=== PATIENT | male | born 1945 | race Caucasian/White ===

== ENCOUNTER 2017-04-29 09:15 | Emergency (ER) | payer OTHER ==
[~2017-04-29] VITALS: Ht 168.9 cm; Wt 111.2 kg
[~2017-04-29 09:15] MED LIST: ADVIN25050 INH; ALBU1AER9 INH; ALL300 PO; ASCA500 PO; CHOL100010 PO; CNT PO; ENOX40IN SQ; FLUTICASONE NAE; LATA0.009 OPB; LISI-725 PO; METO25TA3 PO; OXYC-57 PO; OXYSR10 PO; OXYSR20 PO; PRLSR20 PO; SIMV20TA2 PO; TERA1CAP63 PO
[2017-04-29 09:21] VITALS: Ht 168.9 cm; Wt 111.2 kg
[2017-04-29 09:34] VITALS: O2SAT 95
[2017-04-29] MEDS ORDERED: ACETAMINOPHEN 500 MG TAB PO STA (09:55)
--- NOTE | 2017-04-29 09:56 | EMERGENCY ROOM VISIT NOTE ---
History Report prepared by Wang: Shine Escamilla Under the Supervision of: Dr. Yogesh Prater M.D. First contact with patient: 09:30 Chief Complaint: CHEST PAIN Stated Complaint: SEVERE CHEST PAINS History of Present Illness The patient is a 71 year old white male with a past medical history of DJD, COPD , HTN, and HLD who presents to the ED with a cc of waxing and waning achy chest pain beginning 0630 this morning which usually lasts for 5 seconds then comes back again. Positive shortness of breath. Negative fevers, chills, cough, leg pains, recent car or plane travel. Nothing makes the pain better or worse, and exertion does not make it worse. He has had intermittent chest pain at night for the past month, though it usually goes away within an hour. He takes 81mg of aspirin daily, and he does not smoke cigarettes for the past three years, though he did for 53 years. He has a family history of TN and CHF. Source of History: patient Onset: 0630 Position: chest Quality: ache Timing: waxes/wanes Associated Symptoms: + SOB, No fevers, No chills, No cough Review of Systems See HPI for pertinent positives and negatives. A total of ten systems were reviewed and were otherwise negative. Past Medical & Surgical Medical Problems: (1) COPD (chronic obstructive pulmonary disease) (2) DJD (degenerative joint disease) (3) HLD (hyperlipidemia) (4) HTN (hypertension) Family History FH: CHF (congestive heart failure) FH: heart attack Social History Smoking Status: Former Smoker Marital Status: Occupation Status: employed Current/Historical Medications Scheduled Allopurinol (Allopurinol), 300 MG PO DAILY Amlodipine (Norvasc), 5 MG PO DAILY Ascorbic Acid (Vitamin C), 500 MG PO DAILY Aspirin (Aspirin Ec), 81 MG PO DAILY Calcitriol (Rocaltrol Cap), 0.25 MCG PO 2XWK Fluticasone Prop/Salmeterol (Advair Diskus 250/50 60 Dose), 1 PUFF INH BID Furosemide (Lasix), 40 MG PO QPM Latanoprost (Xalatan 0.005% Oph Ida), 1 DROPS OPB HS Omeprazole (Prilosec), 20 MG PO DAILY Prednisone (Prednisone), 30 MG PO DAILY Sildenafil Citrate (Viagra), 100 MG PO PRN Simvastatin (Zocor), 20 MG PO HS Scheduled PRN Acetaminophen (Tylenol Extra Strength), 500 MG PO UD PRN for Pain Albuterol Sulfate (Proair Respiclick), 2 PUFFS INH QID PRN for SOB/Wheezing Epinephrine (Epipen), 0.3 MG IM UD PRN for ALLERGIC REACTION Mometasone Furoate (Mometasone Furoate), 1 APPLN TOP DAILY PRN for Itching Prednisone Tab (Prednisone), 1 DOSE PO UD PRN for RESCUE KIT Tapentadol Hcl (Nucynta), 50 MG PO TID PRN for Pain Allergies Coded Allergies: Bee Venom (Verified Allergy, Severe, THROAT SWELLING, 04/29/17) Ceftriaxone (Verified Allergy, Intermediate, HIVES, 04/29/17) Sulfa Antibiotics (Verified Allergy, Unknown, `, 04/29/17) Physical Exam Vital Signs Date Time Temp Pulse Resp B/P (MAP) Pulse Ox O2 Delivery O2 Flow Rate FiO2 04/29/17 16:20 75 16 114/93 97 04/29/17 13:38 76 04/29/17 12:12 81 15 150/98 97 Room Air 04/29/17 10:56 79 18 107/88 96 Room Air 04/29/17 09:34 95 Room Air 04/29/17 09:34 95 Room Air 04/29/17 09:31 86 04/29/17 09:21 36.8 91 16 186/103 95 Room Air Physical Exam GENERAL: Awake, alert, well-appearing, NAD HENT: Normocephalic, atraumatic. Right sided cochlear implant. EYES: Normal conjunctiva. Sclera non-icteric. NECK: Supple. No nuchal rigidity. FROM. RESPIRATORY: CTAB, no rhonchi, wheezing, crackles CARDIAC: RRR, no MRG ABDOMEN: Soft, NTND, BS+ MSK: No chest wall TTP, no LE edema. Left vertical incisional scar over the left knee consistent with prior TKA. NEURO: GCS 15, CN 2-12 intact, moves all 4s on command SKIN: No rash or jaundice noted. Medical Decision & Procedures ER Provider Diagnostic Interpretation: Radiology results as stated below per my review and radiologist interpretation: CHEST ONE VIEW PORTABLE CLINICAL HISTORY: Atypical chest pain COMPARISON STUDY: 09/11/2008 FINDINGS: The heart is mildly enlarged. There is aortic tortuosity. There is no failure. There is no focal pulmonary consolidation. There are no pleural effusions.[ IMPRESSION: No active disease in the chest. Electronically signed by: Mello Padilla M.D. 04/29/2017 10:23 AM Dictated Date/Time: 04/29/2017 10:23 AM Laboratory Results 04/29/17 09:30 Red Blood Count 4.62, Mean Corpuscular Volume 92.4, Mean Corpuscular Hemoglobin 30.7, Mean Corpuscular Hemoglobin Concent 33.3, Mean Platelet Volume 9.8, Neutrophils (%) (Auto) 58.6, Lymphocytes (%) (Auto) 29.2, Monocytes (%) (Auto) 6.9, Eosinophils (%) (Auto) 3.4, Basophils (%) (Auto) 0.5, Neutrophils # (Auto) 5.57, Lymphocytes # (Auto) 2.78, Monocytes # (Auto) 0.66, Eosinophils # (Auto) 0.32, Basophils # (Auto) 0.05 04/29/17 09:30 Test 04/29/17 09:30 White Blood Count 9.51 K/uL (4.8-10.8) Red Blood Count 4.62 M/uL (4.7-6.1) Hemoglobin 14.2 g/dL (14.0-18.0) Hematocrit 42.7 % (42-52) Mean Corpuscular Volume 92.4 fL (80-100) Mean Corpuscular Hemoglobin 30.7 pg (25-34) Mean Corpuscular Hemoglobin Concent 33.3 g/dl (32-36) Platelet Count 227 K/uL (130-400) Mean Platelet Volume 9.8 fL (7.4-10.4) Neutrophils (%) (Auto) 58.6 % Lymphocytes (%) (Auto) 29.2 % Monocytes (%) (Auto) 6.9 % Eosinophils (%) (Auto) 3.4 % Basophils (%) (Auto) 0.5 % Neutrophils # (Auto) 5.57 K/uL (1.4-6.5) Lymphocytes # (Auto) 2.78 K/uL (1.2-3.4) Monocytes # (Auto) 0.66 K/uL (0.11-0.59) Eosinophils # (Auto) 0.32 K/uL (0-0.5) Basophils # (Auto) 0.05 K/uL (0-0.2) RDW Standard Deviation 48.4 fL (36.4-46.3) RDW Coefficient of Variation 14.4 % (11.5-14.5) Immature Granulocyte % (Auto) 1.4 % Immature Granulocyte # (Auto) 0.13 K/uL (0.00-0.02) Prothrombin Time 10.3 SECONDS (9.0-12.0) Prothromb Time International Ratio 1.0 (0.9-1.1) Activated Partial Thromboplast Time 26.1 SECONDS (21.0-31.0) Partial Thromboplastin Ratio 1.0 Anion Gap 7.0 mmol/L (3-11) Est Creatinine Clear Calc Drug Dose 54.9 ml/min Estimated GFR () 54.3 Estimated GFR (Non- 46.8 BUN/Creatinine Ratio 24.5 (10-20) Calcium Level 9.5 mg/dl (8.5-10.1) Total Bilirubin 0.4 mg/dl (0.2-1) Direct Bilirubin 0.1 mg/dl (0-0.2) Aspartate Amino Transf (AST/SGOT) 14 U/L (15-37) Alanine Aminotransferase (ALT/SGPT) 22 U/L (12-78) Alkaline Phosphatase 98 U/L (45-117) Troponin I 0.029 ng/ml (0-0.045) Total Protein 7.5 gm/dl (6.4-8.2) Albumin 3.9 gm/dl (3.4-5.0) Lipase 243 U/L (73-393) Laboratory results reviewed by me Medications Administered Medications (Trade) Dose Ordered Sig/Phillip Route Start Time Stop Time Status Last Admin Dose Admin Acetaminophen (Tylenol Tab) 1,000 mg NOW STAT PO 04/29/17 09:55 04/29/17 09:57 DC 04/29/17 10:04 1,000 MG Fentanyl Citrate (Fentanyl Inj) 75 mcg NOW ONCE IV 04/29/17 12:15 04/29/17 12:17 DC 04/29/17 12:11 75 MCG Perflutren Lipid Microsphere (Definity) 2 ml ONE ONCE IV 04/29/17 15:44 04/29/17 15:45 DC 04/29/17 15:44 2 ML ECG Indication: chest pain Rate (beats per minute): 82 Rhythm: normal sinus Findings: no ectopy, other (Normal intervals, normal axis, no STS changes or TWI, T wave flattening in lead 3. No other contiguous changes) ED Course 0930: The patient was evaluated in room A4. A complete history and physical exam was performed. 1118: I discussed the patient's case with Dr. Grullon, Cardiology, and he is going to evaluate the patient and perform an exercise stress echo. 1121: I reevaluated the patient, and I discussed the treatment plan. 1454: The patient is still at his testing. 1546: I talked with Dr. Grullon, and he states that the patient had hypertension associated with the test and it was non-ischemic. He recommends starting the patient on amlodipine. 1550: I reevaluated the patient. Discussed results and discharge instructions: He verbalized understanding and agreement. The patient is ready for discharge. 1701: Dr. Grullon called me, and on further inspection, the patient had a trace pericardial effusion. Medical Decision Differential diagnosis: Etiologies such as cardiac ischemia, aortic dissection, pulmonary embolism, pneumonia, pneumothorax, musculoskeletal, infections, pericarditis, myocarditis , esophageal rupture, gastrointestinal, as well as others were entertained. Patient was seen and evaluated at the bedside. Patient had been complaining of some light left sided in her bitten chest pain been ongoing for 1 month's time. Patient denies any infectious symptoms and his symptoms are not concerning for possible PE. Patient's EKG was benign. Troponin was 0.02. Patient only had mild chest pain. Patient states that the pain was not exertionally is no PND orthopnea. Patient does have some risk factors and his heart score is greater than 4. I spoke with cardiology. Stress ECHO ordered. Result was negative. He did have a HTNsive episode. Was told to start amlodipine and given Rx. After d/c, I spoke w/ Dr. Grullon who noted trace pericardial effusion w/o tamp. Recommended motrin for possible pericarditis. I phoned the patient but was unable to reach and a message was left. He called and left a message. I called back. He stated he wasn't to take motrin given CKD. Given a short course of prednisone instead which was sent electronically. Patient agreed w/ POC. Medication Reconcilliation Current Medication List: was personally reviewed by me Blood Pressure Screening Patient's blood pressure: Elevated blood pressure Blood pressure disposition: Referred to PCP Consults Time Called: 1105 Consulting Physician: Dr. Grullon, Cardiology Returned Call: 1118 I discussed the patient's case with Dr. Grullon, Cardiology, and he is going to evaluate the patient and perform an exercise stress echo. Impression Primary Impression: Left sided chest pain Additional Impression: HTN (hypertension) Scribe Attestation The scribe's documentation has been prepared under my direction and personally reviewed by me in its entirety. I confirm that the note above accurately reflects all work, treatment, procedures, and medical decision making performed by me. Departure Information Dispostion Home / Self-Care Prescriptions Prednisone (Prednisone) 20 Mg Tab 30 MG PO DAILY for 14 Days, #21 TAB Prov: Yogesh Prater M.D. 04/29/17 Amlodipine (Norvasc) 5 Mg Tab 5 MG PO DAILY for 30 Days, #30 TAB Prov: Yogesh Prater M.D. 04/29/17 Referrals Kain Russell M.D. (PCP) Forms Call Back Authorization, HOME CARE DOCUMENTATION FORM, IMPORTANT VISIT INFORMATION Patient Instructions My [facility] Additional Instructions Please return to the emergency department if you have worsening or recurrent symptoms not amenable to at-home treatment. Please call for a follow-up appointment with her primary care physician. Please take your medications as prescribed. If you have other concerns and/or complaints please feel free to also call your primary care physician's office or return the ED for further evaluation, management, and treatment. You were found to have an elevated blood pressure today (>120 sytolic or >90 diastolic). Per medicare guidelines, you need to follow up with this blood pressure screening with your Primary Care Physician (PCP). For a new PCP call [phone]. Please call your PCP Dr. Russell to be seen w/in 1 week. You have been examined and treated today on an emergency basis only. This is not a substitute for, or an effort to provide, complete comprehensive medical care. It is impossible to recognize and treat all injuries or illnesses in a single emergency department visit. It is therefore important that you follow up closely with [facility]. Call as soon as possible for an appointment. Thank you for your time and consideration. I look forward to speaking with you again soon. Please don't hesitate to call us if you have any questions. Problem Qualifiers Additional Impression: HTN (hypertension) Hypertension type: essential hypertension Qualified Codes: I10 - Essential ( primary) hypertension
[2017-04-29 10:16] LABS: BASO % 0.5 %; BASO ABS # 0.05 K/uL (0-0.2); COMPLETE YES; EOS % 3.4 %; HEMATOCRIT 42.7 % (42-52); IG% 1.4 %; LYMPH % 29.2 %; LYMPH ABS # 2.78 K/uL (1.2-3.4); MEAN CELL VOLUME 92.4 fL (80-100); MEAN CORPUSCULAR HEMOGLOBIN 30.7 pg (25-34); MEAN CORPUSCULAR HGB CONC 33.3 g/dl (32-36); MEAN PLATELET VOLUME 9.8 fL (7.4-10.4); MONO % 6.9 %; NEUT % 58.6 %; PLATELET COUNT 227 K/uL (130-400); RED BLOOD COUNT 4.62 M/uL (4.7-6.1); WHITE BLOOD COUNT 9.51 K/uL (4.8-10.8)
[2017-04-29 10:23] LABS: PROTHROMBIN TIME (PATIENT) 10.3 SECONDS (9.0-12.0)
[2017-04-29 10:25] LABS: BUN/CREATININE RATIO 24.5 (10-20); CALCIUM 9.5 mg/dl (8.5-10.1); CREATININE 1.5 mg/dl (0.60-1.40); POTASSIUM 4.2 mmol/L (3.5-5.1)
--- NOTE | 2017-04-29 10:25 | DIAGNOSTIC IMAGING REPORT ---
CHEST ONE VIEW PORTABLE CLINICAL HISTORY: Atypical chest pain COMPARISON STUDY: 09/11/2008 FINDINGS: The heart is mildly enlarged. There is aortic tortuosity. There is no failure. There is no focal pulmonary consolidation. There are no pleural effusions.[ IMPRESSION: No active disease in the chest. Electronically signed by: Mello Padilla M.D. 04/29/2017 10:23 AM Dictated Date/Time: 04/29/2017 10:23 AM
[2017-04-29] MEDS ORDERED: ASPI81TA28 PO (10:38)
[2017-04-29] MEDS ORDERED: LATA0.5S OPB (10:38)
[2017-04-29] MEDS ORDERED: ALBU18002 INH (10:38)
[2017-04-29] MEDS ORDERED: SIMV20TA2 PO (10:38)
[2017-04-29] MEDS ORDERED: FRS/40 PO (10:38)
[2017-04-29] MEDS ORDERED: ACET-1138 PO (10:38)
[2017-04-29] MEDS ORDERED: PRLSR20 PO (10:38)
[2017-04-29] MEDS ORDERED: ADVIN25/60 INH (10:38)
[2017-04-29] MEDS ORDERED: ALL300 PO (10:38)
[2017-04-29] MEDS ORDERED: EPP3/2 IM (10:38)
[2017-04-29] MEDS ORDERED: SILD100T PO (10:38)
[2017-04-29] MEDS ORDERED: CALC0.2510 PO (10:38)
[2017-04-29] MEDS ORDERED: ASCA500 PO (10:38)
[2017-04-29] MEDS ORDERED: TAPE50TA5 PO (10:38)
[2017-04-29] MEDS ORDERED: MOME1OIN2 TOP (10:38)
[2017-04-29] MEDS ORDERED: PRED10TA PO (10:38)
[2017-04-29] MEDS ORDERED: FENTANYL CITRATE INJ 50 MCG/1 ML 2 ML VIAL IV ONE (12:15)
[2017-04-29] MEDS ORDERED: PERFLUTREN LIPID MICROSPHERE (DEFINITY) IV ONE (15:44)
[2017-04-29] MEDS ORDERED: AMLO-110 PO (15:51)
[2017-04-29 16:20] VITALS: BP 114/93; PULSE 75; O2SAT 97
--- NOTE | 2017-04-29 17:06 | EXERCISE STRESS ECHO ---
*NOTICE TO RECEIVING REPUBLICAN AGENCY This information is strictly Confidential and protected under [place] law. [place] law prohibits you from making any further disclosure of this information unless further disclosure is expressly permitted by the written consent of the person to whom it pertains or is authorized by law. A general authorization for the release of medical or other information is not sufficient for this purpose. Hospital accepts no responsibility if the information is made available to any other person, INCLUDING THE PATIENT. Interpretation Summary * Name: MELISSA HARDEN Study Date: 04/29/2017 12:12 PM BP: 163/95 mmHg * Patient Location: [facility] HR: 71 * : 1945 (M/d/yyyy) Gender: Male Height: 66 in * Age: 71 yrs Ethnicity: [place] Weight: 245 lb * Ordering Physician: Yogesh Prater * Referring Physician: Self, Referred * Performed By: Dominguez Artis RCS * * Reason For Study: chest pain * BSA: 2.2 m2 * -- Conclusions -- * Nonischemic exercise stress echocardiogram. * No arrhythmias. * Hypertensive BP response to exercise. * Below average exercise tolerance. * At rest, normal LV chamber size with mild concentric LVH. * Normal LV systolic function, EF 60-65%. * No segmental left ventricular wall motion abnormalities are noted. * Grade I diastolic dysfunction. Procedure Details * ECHOEX, CPT #[id number] * ECHO COLOR FLOW, CPT #[id number] * ECHO DOPPLER, CPT #[id number] * A contrast injection of Definity was performed to improve assessment of LV function. * Contrast was injected into an intravenous site in the right arm. * One vial of Definity ultrasound contrast was diluted in normal saline to a total volume of 10 ml. A total of '4' ml of solution was administered during imaging. * Lot # [id number] of Definity utilized for procedure. * Expiration date . * The attending nurse who injected the contrast agent was Chris Maloney RN. Left Ventricle * The left ventricle is normal in size. * There is mild concentric left ventricular hypertrophy. * Left ventricular systolic function is normal. * No segmental left ventricular wall motion abnormalities are noted. * Ejection Fraction = 60-65%. * Resting wall motion: Normal. Stress wall motion: Appropriate increase in Left ventricular systolic function and decrease in cavity size. No stress induced segmental wall motion abnormalities. Right Ventricle * The right ventricular cavity size is normal (basal dimension <4.2 cm in right ventricular apical 4-chamber view). * The right ventricular systolic function is normal as assessed by tricuspid annular plane systolic excursion (TAPSE) (normal >1.5 cm). Atria * The left atrial size is normal. * Right atrial size is normal. * No ASD detected; PFO is not assessed. Mitral Valve * The mitral valve is normal in structure and function. Tricuspid Valve * The tricuspid valve is normal in structure and function. Aortic Valve * The aortic valve is not well visualized. * No hemodynamically significant valvular aortic stenosis. * There is no significant aortic regurgitation. Pulmonic Valve * The pulmonary valve is not well seen, but the Doppler examination is normal without significant regurgitation or stenosis. Great Vessels * The aortic root and proximal ascending aorta are normal sized. Pericardium * Small pericardial effusion. * A loculated pericardial effusion is noted. Stress Parameters * Normal baseline electrocardiogram. * Stress ECG: No ST changes. No arrhythmias. * No arrhythmia were noted with stress. * The stress portion of this study was personally supervised by the undersigned interpreting physician. * Rest heart rate was '71' BPM. * Rest blood pressure was '163/95' * Maximum heart rate achieved was 134 bpm. * Maximum heart rate was 88 % of maximum age-predicted heart rate. * Maximum blood pressure was '243/108' * Total exercise time was '5:51' * Maximum exercise MET level achieved was '7.0' METS * Maximum treadmill speed was '2.5' miles per hour. * Maximum treadmill elevation was '12'% grade. * Exercise was terminated due to 'physicians descretion due to increased blood pressure' Left Ventricular Diastolic Function * Grade I diastolic dysfunction, (abnormal relaxation pattern). MMode 2D Measurements and Calculations IVSd 1.3 cm IVSs 1.5 cm LVIDd 4.8 cm LVIDs 3.5 cm LVPWd 1.2 cm LVPWs 1.8 cm IVS/LVPW 1.1 FS 26.9 % EDV(Teich) 108.2 ml ESV(Teich) 51.5 ml EF(Teich) 52.4 % EDV(cubed) 111.5 ml ESV(cubed) 43.5 ml EF(cubed) 61.0 % % IVS thick 15.7 % % LVPW thick 49.2 % LV mass(C)d 237.5 grams LV mass(C)dI 108.9 grams/m\S\2 LV mass(C)s 232.5 grams LV mass(C)sI 106.6 grams/m\S\2 SV(Teich) 56.7 ml SI(Teich) 26.0 ml/m\S\2 SV(cubed) 68.0 ml SI(cubed) 31.2 ml/m\S\2 asc Aorta Diam 3.5 cm EDV(MOD-sp4) 122.6 ml ESV(MOD-sp4) 43.4 ml EF(MOD-sp4) 64.6 % EDV(MOD-sp2) 109.1 ml ESV(MOD-sp2) 47.9 ml EF(MOD-sp2) 56.1 % SV(MOD-sp4) 79.2 ml SI(MOD-sp4) 36.3 ml/m\S\2 SV(MOD-sp2) 61.3 ml SI(MOD-sp2) 28.1 ml/m\S\2 Doppler Measurements and Calculations MV E max ivan 59.2 cm/sec MV A max ivan 74.7 cm/sec MV E/A 0.79 MV P1/2t max ivan 61.2 cm/sec MV P1/2t 73.9 msec MVA(P1/2t) 3.0 cm\S\2 MV dec slope 242.7 cm/sec\S\2 MV dec time 0.30 sec Ao V2 max 114.0 cm/sec Ao max PG 5.2 mmHg Ao max PG (full) 2.5 mmHg LV V1 max PG 2.7 mmHg LV V1 max 82.3 cm/sec PA V2 max 115.6 cm/sec PA max PG 5.3 mmHg TR max ivan 96.3 cm/sec
--- NOTE | 2017-04-29 17:08 | EXERCISE STRESS ECHO ---
*NOTICE TO RECEIVING REPUBLICAN AGENCY This information is strictly Confidential and protected under [place] law. [place] law prohibits you from making any further disclosure of this information unless further disclosure is expressly permitted by the written consent of the person to whom it pertains or is authorized by law. A general authorization for the release of medical or other information is not sufficient for this purpose. Hospital accepts no responsibility if the information is made available to any other person, INCLUDING THE PATIENT. Interpretation Summary * Name: MELISSA HARDEN Study Date: 04/29/2017 12:12 PM BP: 163/95 mmHg * Patient Location: [facility] HR: 71 * : 1945 (M/d/yyyy) Gender: Male Height: 66 in * Age: 71 yrs Ethnicity: [place] Weight: 245 lb * Ordering Physician: Yogesh Prater * Referring Physician: Self, Referred * Performed By: Dominguez Artis RCS * * Reason For Study: chest pain * BSA: 2.2 m2 * -- Conclusions -- * Nonischemic exercise stress echocardiogram. * No arrhythmias. * Hypertensive BP response to exercise. * Below average exercise tolerance. * At rest, normal LV chamber size with mild concentric LVH. * Normal LV systolic function, EF 60-65%. * No segmental left ventricular wall motion abnormalities are noted. * Grade I diastolic dysfunction. * No significant valvular pathology. * Small, loculated pericardial effusion. Not hemodynamically significant. Procedure Details * ECHOEX, CPT #[id number] * ECHO COLOR FLOW, CPT #[id number] * ECHO DOPPLER, CPT #[id number] * A contrast injection of Definity was performed to improve assessment of LV function. * Contrast was injected into an intravenous site in the right arm. * One vial of Definity ultrasound contrast was diluted in normal saline to a total volume of 10 ml. A total of '4' ml of solution was administered during imaging. * Lot # [id number] of Definity utilized for procedure. * Expiration date . * The attending nurse who injected the contrast agent was Chris Maloney RN. Left Ventricle * The left ventricle is normal in size. * There is mild concentric left ventricular hypertrophy. * Left ventricular systolic function is normal. * No segmental left ventricular wall motion abnormalities are noted. * Ejection Fraction = 60-65%. * Resting wall motion: Normal. Stress wall motion: Appropriate increase in Left ventricular systolic function and decrease in cavity size. No stress induced segmental wall motion abnormalities. Right Ventricle * The right ventricular cavity size is normal (basal dimension <4.2 cm in right ventricular apical 4-chamber view). * The right ventricular systolic function is normal as assessed by tricuspid annular plane systolic excursion (TAPSE) (normal >1.5 cm). Atria * The left atrial size is normal. * Right atrial size is normal. * No ASD detected; PFO is not assessed. Mitral Valve * The mitral valve is normal in structure and function. Tricuspid Valve * The tricuspid valve is normal in structure and function. Aortic Valve * The aortic valve is not well visualized. * No hemodynamically significant valvular aortic stenosis. * There is no significant aortic regurgitation. Pulmonic Valve * The pulmonary valve is not well seen, but the Doppler examination is normal without significant regurgitation or stenosis. Great Vessels * The aortic root and proximal ascending aorta are normal sized. Pericardium * Small pericardial effusion. * A loculated pericardial effusion is noted. Stress Parameters * Normal baseline electrocardiogram. * Stress ECG: No ST changes. No arrhythmias. * No arrhythmia were noted with stress. * The stress portion of this study was personally supervised by the undersigned interpreting physician. * Rest heart rate was '71' BPM. * Rest blood pressure was '163/95' * Maximum heart rate achieved was 134 bpm. * Maximum heart rate was 88 % of maximum age-predicted heart rate. * Maximum blood pressure was '243/108' * Total exercise time was '5:51' * Maximum exercise MET level achieved was '7.0' METS * Maximum treadmill speed was '2.5' miles per hour. * Maximum treadmill elevation was '12'% grade. * Exercise was terminated due to 'physicians descretion due to increased blood pressure' Left Ventricular Diastolic Function * Grade I diastolic dysfunction, (abnormal relaxation pattern). MMode 2D Measurements and Calculations IVSd 1.3 cm IVSs 1.5 cm LVIDd 4.8 cm LVIDs 3.5 cm LVPWd 1.2 cm LVPWs 1.8 cm IVS/LVPW 1.1 FS 26.9 % EDV(Teich) 108.2 ml ESV(Teich) 51.5 ml EF(Teich) 52.4 % EDV(cubed) 111.5 ml ESV(cubed) 43.5 ml EF(cubed) 61.0 % % IVS thick 15.7 % % LVPW thick 49.2 % LV mass(C)d 237.5 grams LV mass(C)dI 108.9 grams/m\S\2 LV mass(C)s 232.5 grams LV mass(C)sI 106.6 grams/m\S\2 SV(Teich) 56.7 ml SI(Teich) 26.0 ml/m\S\2 SV(cubed) 68.0 ml SI(cubed) 31.2 ml/m\S\2 asc Aorta Diam 3.5 cm EDV(MOD-sp4) 122.6 ml ESV(MOD-sp4) 43.4 ml EF(MOD-sp4) 64.6 % EDV(MOD-sp2) 109.1 ml ESV(MOD-sp2) 47.9 ml EF(MOD-sp2) 56.1 % SV(MOD-sp4) 79.2 ml SI(MOD-sp4) 36.3 ml/m\S\2 SV(MOD-sp2) 61.3 ml SI(MOD-sp2) 28.1 ml/m\S\2 Doppler Measurements and Calculations MV E max ivan 59.2 cm/sec MV A max ivan 74.7 cm/sec MV E/A 0.79 MV P1/2t max ivan 61.2 cm/sec MV P1/2t 73.9 msec MVA(P1/2t) 3.0 cm\S\2 MV dec slope 242.7 cm/sec\S\2 MV dec time 0.30 sec Ao V2 max 114.0 cm/sec Ao max PG 5.2 mmHg Ao max PG (full) 2.5 mmHg LV V1 max PG 2.7 mmHg LV V1 max 82.3 cm/sec PA V2 max 115.6 cm/sec PA max PG 5.3 mmHg TR max ivan 96.3 cm/sec
[2017-04-29] MEDS ORDERED: PRED20TA PO (18:09)
== END 2017-04-29 16:20 | disposition home or self-care (01) ==
LOC: C.EDB 09:17 → C.EDA 16:20
DX: R07.9 Chest pain, unspecified (principal); I10 Essential (primary) hypertension; M19.90 Unspecified osteoarthritis, unspecified site; J44.9 Chronic obstructive pulmonary disease, unspecified; E78.5 Hyperlipidemia, unspecified; Z79.82 Long term (current) use of aspirin; Z82.49 Family history of ischemic heart disease and other diseases of the circulatory system; Z87.891 Personal history of nicotine dependence; Z79.899 Other long term (current) drug therapy; Z96.652 Presence of left artificial knee joint

== ENCOUNTER 2025-01-20 10:44 | Observation (INO) ==
--- NOTE | 2025-01-20 11:08 | Emergency Department Note ---
Impression & Plan Sepsis, Community acquired pneumonia, Hypomagnesemia, Acute hyponatremia ED Provider Note NAME: MELISSA HARDEN AGE: 79 SEX: M : 1945 ARRIVES VIA: EMS INFORMANT: Patient, EMS staff ED PROVIDER(S): Carlos Alvarez DO CHIEF COMPLAINT: lightheadedness HPI: This is a 79-year-old male with the PMHx of hypertension, dyslipidemia, CKD and COPD presenting to [facility] for further evaluation of lightheadedness. Patient states he was at baseball games over the weekend for his grandchildren. Patient states he was out in the heat and not keeping up with his hydration. Patient states that he was also working out in his yard helping someone remove shrubbery. Patient reports that he woke up this morning and had significant lightheadedness. He also reports frequent urination and he has tried to increase his hydration without significant improvement in his symptoms. Patient states that his lightheadedness seems to be positional. He denies any vertiginous symptoms. Patient does feel weakness and fatigue. He reports polyuria. He has no history of diabetes. Patient denies significant headache or vision changes. No numbness or tingling in extremities. No weakness in the extremities. Patient has significant chills this morning that have since resolved. No cough or congestion. Denies chest pain or palpitations. No shortness of breath. They deny abdominal pain, nausea and vomiting. No urinary complaints. No recent changes in bowel movements. Patient denies recent changes in medications or OTC supplements. Patient offers no other complaints, today. ADDITIONAL HISTORY OBTAINED: Per HPI Chronic Medical/Social Conditions Affecting Care: Per HPI PAST MEDICAL HISTORY: See Below PAST SURGICAL HISTORY: See Below FAMILY HISTORY: See Below SOCIAL HISTORY: See Below HOME MEDICATIONS: See Below ALLERGIES: See Below VITALS: See Below PHYSICAL EXAMINATION: GENERAL: Sitting up in bed, alert, well appearing, well nourished, no distress, non-toxic EYE EXAM: normal conjunctiva. PERRL and EOM's grossly intact. OROPHARYNX: no exudate, no erythema, lips, buccal mucosa, and tongue normal and mucous membranes are dry NECK: supple, no nuchal rigidity, no adenopathy, non-tender, normal range of motion LUNGS: Rhonchorous breath sounds on the right. Mild tachypnea present. Normal chest wall mechanics HEART: no murmurs, tachycardic rate, regular rhythm ABDOMEN: abdomen soft, non-tender, normo-active bowel sounds, no masses, no rebound or guarding. BACK: Back is symmetrical on inspection and there is no deformity, no midline tenderness, no CVA tenderness. SKIN: no rashes and no bruising UPPER EXTREMITIES: upper extremities are grossly normal. LOWER EXTREMITIES: No pitting edema. NEURO EXAM: Normal sensorium, cranial nerves II-XII grossly intact, normal speech, no gross weakness of arms, no gross weakness of legs. No drift. Finger to nose intact. Gross sensation intact. patient ambulates and stands without difficulty. MEDICAL DECISION MAKING: Differential diagnosis includes but not limited to orthostatic hypotension, dehydration, electrolyte derangements, sepsis, UTI, stroke, peripheral vertigo, medication side effect, polypharmacy In summary, this is a 79-year-old male with a past medical history significant for hypertension, hyperlipidemia and CKD presenting for lightheadedness and concerns for dehydration. Triage and nursing notes reviewed. Patient is tachycardic but otherwise afebrile and hemodynamically stable. Diagnostics interpreted by me include EKG and cardiac monitoring as listed below: -Cardiac Monitoring: An order was placed for continuous cardiac monitoring. The monitor shows a rate of low 100s with regular rhythm. -ECG: EKG independently inter by me reveals sinus tachycardia at a rate of [address] segment change doubt STEMI. Intervals otherwise within normal limits. History provided by the patient includes lightheadedness that started this morning with thoughts that he was dehydrated. He does endorse chills this morning and I am concerned that he was having rigors. Physical examination reveals tachycardia and tachypnea but otherwise unremarkable exam. He is a GCS of 15 and grossly neurovascularly intact without evidence of a focal deficit. Given history and presentation, we will Labs and chest x-ray for further imaging. I do suspect he is likely dehydrated but given his vital signs and complaints, I am concerned for occult infections. Plan for further evaluation of infectious etiologies with urinalysis, chest x-ray and inflammatory markers as well as basic labs. We will begin IV fluid resuscitation given his tachycardia. No concerns for stroke based on physical examination and history. Will defer intracranial imaging for now. Labs and imaging reviewed. Pertinent findings include Leukocytosis on CBC. Patient does have mild anemia that is stable as compared to prior. Patient's lactate was within normal limits. Given leukocytosis, will add RVP and proceed with sepsis alert. Patient chest x-ray was independently interpreted by me and reveals focal consolidations of the right side of the chest. No evidence of a pneumothorax. Do believe this likely explains his tachypnea and tachycardia as well as rigors prior. Do believe he is likely septic secondary to community- acquired pneumonia. Reviewed allergies. Patient does have an allergy to ceftriaxone. He states that he has tolerated penicillins in the past without any issue. Will dose the patient with IV Zosyn as well as azithromycin for atypical coverage. Patient was also found to have significant hypomagnesemia as well as mild hyponatremia. Patient has IV fluid resuscitation ongoing. Will provide IV replenishment of magnesium. Given the patient lives alone and ongoing tachycardia and concerns for sepsis, I do believe he would be reasonable to admit for observation overnight. The patient was discussed with the hospitalist team and he was admitted for observation in the setting of sepsis secondary to community-acquired pneumonia with electrolyte derangements. Consults/Care Managements Discussions: Per MDM ER treatment provided: See above Procedures:none Critical Care: None Past Med/Surg History Problem List Generalized weakness KINJAL on CPAP Acute metabolic encephalopathy Hypomagnesemia (Acute) Community acquired pneumonia (Acute) Sepsis (Acute) Opiate overdose Postoperative fever CKD (chronic kidney disease) stage 3, GFR 30-59 ml/min Postoperative fever Discharge planning issues Leukocytosis Fever (Acute) Metabolic acidosis CANDIS (acute kidney injury) Encounter for pre-operative examination COPD (chronic obstructive pulmonary disease) Obesity (BMI 30-39.9) (Chronic) DJD (degenerative joint disease) (Chronic) HTN (hypertension) HLD (hyperlipidemia) Unilateral primary osteoarthritis, right knee Risks and benefits of procedure discussed in detail today, patient would like to proceed with Right TKA @ [facility] as scheduled. will obtain medical clearance with Dr Russell prior to surgery as well as obtain PATs at [facility]. Will place on ASA 81mg po bid x 1 month post op, f/u 2 weeks post op for routine post- operative care and xray, sooner if having any problems. will discuss with CM poss rehab placement vs nursing home facility. patient has failed conservative measures including prior NSAID use which is now held due to chronic kidney disease, prior visco injections and cortisone injections. Medical History History of COVID-19 08/2022 home test. fever, body aches, and chills. doing well at this time. History of basal cell carcinoma History of melanoma Hearing deficit COCHLEAR IMPLANT ON RIGHT; HEARING AID ON LEFT Kidney disease STAGE III; BASELINE CREATININE 1.5 PER CHART REVIEW GERD (gastroesophageal reflux disease) CONTROLLED Osteoarthritis Glaucoma Sleep apnea CPAP (NON-COMPLIANT) COPD (chronic obstructive pulmonary disease) STABLE Surgical History History of cataract surgery right History of oral surgery History of basal cell carcinoma (BCC) excision History of melanoma excision Hx of colonoscopy History of carpal tunnel surgery of left wrist History of cochlear implant RIGHT History of arthroplasty of left knee Hx of cardiac cath 2012= NO STENTS Family History Other Cancer Social History Smoking Status: Current every day smoker Tobacco Type: E-cigarettes / Vaping Cigarettes Per Day: QUIT CIGARETTES 4 YRS AGO, CURRENTLY USES E-CIGARETTES DAILY; Second Hand Exposure: No; Do You Dip or Chew Tobacco: No; Hx Alcohol Use: Yes (HX OF HEAVY ETOH USE) Alcohol type: hard liquor Hx Substance Use: No Preferred Language: Lao Communication Ability: Effective Communication Ability Comment: [facility] Glassware Finisher Required: No Beliefs That Will Affect Care: None Current Living Situation: Alone Feels Safe at Home: Yes Assistive Devices: Hearing Aid - Left and Hearing Aid - Right Allergies Allergies Allergy/AdvReac Type Severity Reaction Status Date / Time bee venom protein (honey bee) Allergy Severe THROAT Verified 12/25/22 07:37 SWELLING ceftriaxone Allergy Intermediate HIVES Verified 12/25/22 07:37 Sulfa (Sulfonamide Allergy Unknown Unknown Verified 12/25/22 07:37 Antibiotics) Home Meds Home Medications Medication Instructions Recorded Confirmed ascorbic acid (vitamin C) 500 mg 500 mg PO QAM 04/29/18 01/20/25 tablet (Vitamin C) epinephrine 0.3 mg/0.3 mL 0.3 mg IM Q3H PRN Allergy Symptoms 04/29/18 01/20/25 injection, auto-injector (EpiPen) fluticasone 250 mcg-salmeterol 50 1 inh inhalation BID 04/29/18 01/20/25 mcg/dose blistr powdr for inhalation (Wixela Inhub) furosemide 20 mg tablet 20 mg PO QPM PRN Fluid Retention 04/29/18 01/20/25 latanoprost 0.005 % eye drops 1 drp ophthalmic (eye) UD 04/29/18 01/20/25 (Xalatan) mometasone 0.1 % topical cream 1 applic topical UD PRN Skin 04/29/18 01/20/25 Cleansing omeprazole 20 mg tablet,delayed 20 mg PO QAM 04/29/18 01/20/25 release sildenafil 100 mg tablet (Viagra) 100 mg PO UD PRN Erectile 04/29/18 01/20/25 Dysfunction acetaminophen 325 mg tablet 650 mg PO QID PRN Pain 07/07/20 01/20/25 (Tylenol) aspirin 81 mg tablet,delayed 81 mg PO QPM 07/07/20 01/20/25 release atorvastatin 20 mg tablet 20 mg PO QPM 07/07/20 01/20/25 lisinopril 5 mg tablet 10 mg PO UD 07/07/20 01/20/25 tapentadol 50 mg tablet (Nucynta) 50 mg PO BID 07/07/20 01/20/25 amlodipine 10 mg tablet (Norvasc) 10 mg PO UD 11/15/22 01/20/25 gabapentin 300 mg capsule 300 mg PO TID 11/15/22 01/20/25 allopurinol 300 mg tablet 300 mg PO DAILY 01/20/25 01/20/25 Results & Data (ED) Vital Signs Vital Signs - 24 hr 01/20/25 10:50 01/20/25 10:50 01/20/25 11:06 Temperature 37.4 C Temperature Source Oral Pulse Rate 114 H Pulse Rate [Apical] 110 H Pulse Rate from SpO2 Sensor Respiratory Rate 22 22 Respiratory Effort / Characteristics Non-Labored Spontaneous Non-Labored Spontaneous Respiratory Depth Normal Normal Respiratory Pattern Regular Regular Blood Pressure 104/81 Blood Pressure [Right Arm] 99/58 L Blood Pressure Mean 88 Blood Pressure Mean [Right Arm] 71 Blood Pressure Position Semi-fowlers Blood Pressure Position [Right Arm] Semi-fowlers Pulse Oximetry 95 95 95 Oxygen Delivery Method Room Air Room Air Room Air Sepsis Recent Fever Within 48 Hours No Sepsis New/Unexplained Change in Mental Status No Sepsis Action Taken by Nursing Physician Notified 01/20/25 11:06 01/20/25 11:14 01/20/25 11:15 Temperature Temperature Source Pulse Rate 112 H 107 H 106 H Pulse Rate [Apical] Pulse Rate from SpO2 Sensor 108 H 107 H Respiratory Rate 22 33 H Respiratory Effort / Characteristics Respiratory Depth Respiratory Pattern Blood Pressure 125/75 Blood Pressure [Right Arm] Blood Pressure Mean 101 Blood Pressure Mean [Right Arm] Blood Pressure Position Blood Pressure Position [Right Arm] Pulse Oximetry 95 91 Oxygen Delivery Method Room Air Sepsis Recent Fever Within 48 Hours Sepsis New/Unexplained Change in Mental Status Sepsis Action Taken by Nursing 01/20/25 11:41 01/20/25 11:45 01/20/25 11:48 Temperature Temperature Source Pulse Rate 110 H 103 H 99 H Pulse Rate [Apical] Pulse Rate from SpO2 Sensor Respiratory Rate 20 23 Respiratory Effort / Characteristics Respiratory Depth Respiratory Pattern Blood Pressure Blood Pressure [Right Arm] Blood Pressure Mean Blood Pressure Mean [Right Arm] Blood Pressure Position Blood Pressure Position [Right Arm] Pulse Oximetry Oxygen Delivery Method Sepsis Recent Fever Within 48 Hours Sepsis New/Unexplained Change in Mental Status Sepsis Action Taken by Nursing 01/20/25 12:01 01/20/25 12:12 01/20/25 12:15 Temperature Temperature Source Pulse Rate Pulse Rate [Apical] 99 H 98 H Pulse Rate from SpO2 Sensor Respiratory Rate 18 22 Respiratory Effort / Characteristics Non-Labored Spontaneous Non-Labored Spontaneous Respiratory Depth Normal Normal Respiratory Pattern Regular Regular Blood Pressure 90/51 L Blood Pressure [Right Arm] 109/68 109/68 Blood Pressure Mean 71 Blood Pressure Mean [Right Arm] 81 81 Blood Pressure Position Blood Pressure Position [Right Arm] Semi-fowlers Semi-fowlers Pulse Oximetry 95 94 Oxygen Delivery Method Room Air Room Air Sepsis Recent Fever Within 48 Hours Sepsis New/Unexplained Change in Mental Status Sepsis Action Taken by Nursing 01/20/25 12:15 01/20/25 12:18 01/20/25 12:30 Temperature Temperature Source Pulse Rate 94 H Pulse Rate [Apical] 108 H Pulse Rate from SpO2 Sensor Respiratory Rate 23 20 Respiratory Effort / Characteristics Respiratory Depth Respiratory Pattern Blood Pressure 109/68 Blood Pressure [Right Arm] 124/73 Blood Pressure Mean 84 Blood Pressure Mean [Right Arm] 90 Blood Pressure Position Blood Pressure Position [Right Arm] Semi-fowlers Pulse Oximetry 96 Oxygen Delivery Method Room Air Sepsis Recent Fever Within 48 Hours Sepsis New/Unexplained Change in Mental Status Sepsis Action Taken by Nursing 01/20/25 12:30 01/20/25 12:30 01/20/25 12:30 Temperature Temperature Source Pulse Rate 95 H Pulse Rate [Apical] Pulse Rate from SpO2 Sensor 98 H Respiratory Rate 18 Respiratory Effort / Characteristics Respiratory Depth Respiratory Pattern Blood Pressure 124/73 124/73 Blood Pressure [Right Arm] Blood Pressure Mean 97 97 Blood Pressure Mean [Right Arm] Blood Pressure Position Blood Pressure Position [Right Arm] Pulse Oximetry 97 Oxygen Delivery Method Sepsis Recent Fever Within 48 Hours Sepsis New/Unexplained Change in Mental Status Sepsis Action Taken by Nursing 01/20/25 12:30 01/20/25 12:30 01/20/25 12:39 Temperature Temperature Source Pulse Rate 93 H Pulse Rate [Apical] Pulse Rate from SpO2 Sensor 93 H Respiratory Rate 26 H Respiratory Effort / Characteristics Respiratory Depth Respiratory Pattern Blood Pressure 124/73 124/73 Blood Pressure [Right Arm] Blood Pressure Mean 97 97 Blood Pressure Mean [Right Arm] Blood Pressure Position Blood Pressure Position [Right Arm] Pulse Oximetry 98 Oxygen Delivery Method Sepsis Recent Fever Within 48 Hours Sepsis New/Unexplained Change in Mental Status Sepsis Action Taken by Nursing 01/20/25 12:45 01/20/25 12:45 01/20/25 12:48 Temperature Temperature Source Pulse Rate 95 H Pulse Rate [Apical] 98 H Pulse Rate from SpO2 Sensor 96 H Respiratory Rate 21 21 Respiratory Effort / Characteristics Non-Labored Spontaneous Respiratory Depth Normal Respiratory Pattern Regular Blood Pressure 136/74 Blood Pressure [Right Arm] 136/74 Blood Pressure Mean 106 Blood Pressure Mean [Right Arm] 94 Blood Pressure Position Blood Pressure Position [Right Arm] Semi-fowlers Pulse Oximetry 96 96 Oxygen Delivery Method Room Air Sepsis Recent Fever Within 48 Hours Sepsis New/Unexplained Change in Mental Status Sepsis Action Taken by Nursing 01/20/25 13:00 01/20/25 13:00 01/20/25 13:06 Temperature Temperature Source Pulse Rate 96 H Pulse Rate [Apical] 98 H 99 H Pulse Rate from SpO2 Sensor 98 H Respiratory Rate 18 21 Respiratory Effort / Characteristics Respiratory Depth Respiratory Pattern Blood Pressure Blood Pressure [Right Arm] 129/79 Blood Pressure Mean Blood Pressure Mean [Right Arm] 95 Blood Pressure Position Blood Pressure Position [Right Arm] Semi-fowlers Pulse Oximetry 96 94 Oxygen Delivery Method Room Air Sepsis Recent Fever Within 48 Hours Sepsis New/Unexplained Change in Mental Status Sepsis Action Taken by Nursing 01/20/25 13:09 01/20/25 13:15 01/20/25 13:16 Temperature Temperature Source Pulse Rate 97 H Pulse Rate [Apical] 96 H Pulse Rate from SpO2 Sensor 98 H Respiratory Rate 17 21 Respiratory Effort / Characteristics Respiratory Depth Respiratory Pattern Blood Pressure 127/79 Blood Pressure [Right Arm] 127/79 Blood Pressure Mean 100 Blood Pressure Mean [Right Arm] 95 Blood Pressure Position Blood Pressure Position [Right Arm] Semi-fowlers Pulse Oximetry 97 95 Oxygen Delivery Method Room Air Sepsis Recent Fever Within 48 Hours Sepsis New/Unexplained Change in Mental Status Sepsis Action Taken by Nursing 01/20/25 13:16 01/20/25 13:16 01/20/25 13:18 Temperature Temperature Source Pulse Rate 99 H Pulse Rate [Apical] Pulse Rate from SpO2 Sensor 100 H Respiratory Rate 20 Respiratory Effort / Characteristics Respiratory Depth Respiratory Pattern Blood Pressure 127/79 127/79 Blood Pressure [Right Arm] Blood Pressure Mean 100 100 Blood Pressure Mean [Right Arm] Blood Pressure Position Blood Pressure Position [Right Arm] Pulse Oximetry 95 Oxygen Delivery Method Sepsis Recent Fever Within 48 Hours Sepsis New/Unexplained Change in Mental Status Sepsis Action Taken by Nursing 01/20/25 13:30 01/20/25 13:45 Temperature Temperature Source Pulse Rate Pulse Rate [Apical] 99 H 102 H Pulse Rate from SpO2 Sensor Respiratory Rate 19 18 Respiratory Effort / Characteristics Non-Labored Respiratory Depth Normal Respiratory Pattern Blood Pressure Blood Pressure [Right Arm] 105/79 Blood Pressure Mean Blood Pressure Mean [Right Arm] 87 Blood Pressure Position Blood Pressure Position [Right Arm] Sitting Pulse Oximetry 94 Oxygen Delivery Method Room Air Sepsis Recent Fever Within 48 Hours Sepsis New/Unexplained Change in Mental Status Sepsis Action Taken by Nursing Laboratory Data 01/20/25 11:05 01/20/25 11:05 Lab Results 01/20/25 01/20/25 01/20/25 Range/Units 11:05 11:19 11:53 WBC 17.13 H (4.8-10.8) K/ul RBC 3.79 L (4.70-6.10) M/uL Hgb 11.6 L (14.0-18.0) g/dl Hct 34.5 L (42.0-52.0) % MCV 91.0 (80.0-100.0) fL MCH 30.6 (25.0-34.0) pg MCHC 33.6 (32.0-36.0) g/dL RDW Std Deviation 49.8 H (36.4-46.3) fL RDW Coeff of Dena 14.9 H (11.5-14.5) % Plt Count 232 (130-400) K/uL MPV 10.1 (9.4-12.4) fL Immature Gran % (Auto) 0.6 % Neut % (Auto) 87.8 % Lymph % (Auto) 6.0 % [place] % (Auto) 5.0 % Eos % (Auto) 0.4 % Baso % (Auto) 0.2 % Neut # (Auto) 15.05 H (1.40-6.50) K/uL Lymph # (Auto) 1.03 L (1.20-3.40) K/uL [place] # (Auto) 0.85 H (0.11-0.59) K/uL Eos # (Auto) 0.06 (0.00-0.50) K/uL Baso # (Auto) 0.04 (0.00-0.20) K/uL Immature Gran # (Auto) 0.10 (0.01-0.20) K/uL Sodium 132 L (136-145) mmol/L Potassium 4.4 (3.5-5.1) mmol/L Chloride 101 (98-107) mmol/L Carbon Dioxide 25 (21-32) mmol/L Anion Gap 6 (3-11) BUN 16 (6-23) mg/dl Creatinine 1.15 (0.6-1.4) mg/dl Est Cr Clr Drug Dosing 58.0 ml/min eGFR 65.55 BUN/Creatinine Ratio 13.9 (10-20) Glucose 125 H (70-99(Fasting)) mg/dl Lactate 1.1 (0.4-2.0) mmol/L Calcium 9.2 (8.6-10.3) mg/dl Phosphorus 2.5 (2.5-4.9) mg/dl Magnesium 1.1 L (1.7-2.4) mg/dl Total Bilirubin 1.0 (0.2-1.0) mg/dl AST 12 L (13-39) U/L ALT 10 (7-52) U/L Alkaline Phosphatase 54 (34-104) U/L Troponin I High Sens 11.0 (0-20) pg/ml C-Reactive Protein 6.73 H (0-0.5) mg/dl Total Protein 6.3 (6.0-8.3) gm/dl Albumin 3.7 (3.4-5.0) gm/dl Globulin 2.6 (2.5-4.0) gm/dl Albumin/Globulin Ratio 1.4 (0.9-2) Procalcitonin (0-0.5) ng/ml Urine Color Yellow Urine Appearance Clear (Clear) Urine pH 7.0 (4.5-7.5) Ur Specific [place] 1.009 (1.000-1.030) Urine Protein Negative (Negative) Urine Glucose (UA) Negative (Negative) Urine Ketones Negative (Negative) Urine Blood Negative (Negative) Urine Nitrite Negative (Negative) Urine Bilirubin Negative (Negative) Urine Urobilinogen Negative (Negative) Ur Leukocyte Esterase Negative (Negative) Urine Comment Adenovirus (PCR) (NotDetected) B. pertussis DNA (PCR) (NotDetected) B.parapertussis DNA PCR (NotDetected) C. pneumoniae DNA (PCR) (NotDetected) Coronavirus OC43 (PCR) (NotDetected) Coronavirus HKU1 (PCR) (NotDetected) Coronavirus 229E (PCR) (NotDetected) SARS-CoV-2 (PCR) (NotDetected) Coronavirus NL63 (PCR) (NotDetected) Human Metapneumovir PCR (NotDetected) Influenza Type A (PCR) (NotDetected) Influenza Type B (PCR) (NotDetected) M. pneumoniae (PCR) (NotDetected) Parainfluenza 1 (PCR) (NotDetected) Parainfluenza 2 (PCR) (NotDetected) Parainfluenza 3 (PCR) (NotDetected) Parainfluenza 4 (PCR) (NotDetected) RSV (PCR) (NotDetected) Entero/Rhino (PCR) (NotDetected) 01/20/25 01/20/25 Range/Units 12:17 12:46 WBC (4.8-10.8) K/ul RBC (4.70-6.10) M/uL Hgb (14.0-18.0) g/dl Hct (42.0-52.0) % MCV (80.0-100.0) fL MCH (25.0-34.0) pg MCHC (32.0-36.0) g/dL RDW Std Deviation (36.4-46.3) fL RDW Coeff of Dena (11.5-14.5) % Plt Count (130-400) K/uL MPV (9.4-12.4) fL Immature Gran % (Auto) % Neut % (Auto) % Lymph % (Auto) % [place] % (Auto) % Eos % (Auto) % Baso % (Auto) % Neut # (Auto) (1.40-6.50) K/uL Lymph # (Auto) (1.20-3.40) K/uL [place] # (Auto) (0.11-0.59) K/uL Eos # (Auto) (0.00-0.50) K/uL Baso # (Auto) (0.00-0.20) K/uL Immature Gran # (Auto) (0.01-0.20) K/uL Sodium (136-145) mmol/L Potassium (3.5-5.1) mmol/L Chloride (98-107) mmol/L Carbon Dioxide (21-32) mmol/L Anion Gap (3-11) BUN (6-23) mg/dl Creatinine (0.6-1.4) mg/dl Est Cr Clr Drug Dosing ml/min eGFR BUN/Creatinine Ratio (10-20) Glucose (70-99(Fasting)) mg/dl Lactate (0.4-2.0) mmol/L Calcium (8.6-10.3) mg/dl Phosphorus (2.5-4.9) mg/dl Magnesium (1.7-2.4) mg/dl Total Bilirubin (0.2-1.0) mg/dl AST (13-39) U/L ALT (7-52) U/L Alkaline Phosphatase (34-104) U/L Troponin I High Sens 11.5 (0-20) pg/ml C-Reactive Protein (0-0.5) mg/dl Total Protein (6.0-8.3) gm/dl Albumin (3.4-5.0) gm/dl Globulin (2.5-4.0) gm/dl Albumin/Globulin Ratio (0.9-2) Procalcitonin 0.30 (0-0.5) ng/ml Urine Color Urine Appearance (Clear) Urine pH (4.5-7.5) Ur Specific [place] (1.000-1.030) Urine Protein (Negative) Urine Glucose (UA) (Negative) Urine Ketones (Negative) Urine Blood (Negative) Urine Nitrite (Negative) Urine Bilirubin (Negative) Urine Urobilinogen (Negative) Ur Leukocyte Esterase (Negative) Urine Comment Adenovirus (PCR) Not Detected (NotDetected) B. pertussis DNA (PCR) Not Detected (NotDetected) B.parapertussis DNA PCR Not Detected (NotDetected) C. pneumoniae DNA (PCR) Not Detected (NotDetected) Coronavirus OC43 (PCR) Not Detected (NotDetected) Coronavirus HKU1 (PCR) Not Detected (NotDetected) Coronavirus 229E (PCR) Not Detected (NotDetected) SARS-CoV-2 (PCR) Not Detected (NotDetected) Coronavirus NL63 (PCR) Not Detected (NotDetected) Human Metapneumovir PCR Not Detected (NotDetected) Influenza Type A (PCR) Not Detected (NotDetected) Influenza Type B (PCR) Not Detected (NotDetected) M. pneumoniae (PCR) Not Detected (NotDetected) Parainfluenza 1 (PCR) Not Detected (NotDetected) Parainfluenza 2 (PCR) Not Detected (NotDetected) Parainfluenza 3 (PCR) Not Detected (NotDetected) Parainfluenza 4 (PCR) Not Detected (NotDetected) RSV (PCR) Not Detected (NotDetected) Entero/Rhino (PCR) Not Detected (NotDetected) Administered Medications Magnesium Sulfate/Dextrose (Magnesium Sulfate / D5w) 1 gm in 100 mls @ 100 mls/hr IV Q1H ELAN Stop: 01/20/25 14:17 Last Admin: 01/20/25 13:38 Dose: 100 mls/hr Documented By: Infusion: 01/20/25 13:37 Dose: Infused Documented By: Admin: 01/20/25 12:44 Dose: 100 mls/hr Documented By: TIMOTHY Discontinued Medications Parenteral Electrolytes (Plasma-Lyte A Ph 7.4) 1,000 mls @ 999 mls/hr IV .Q1H1M ONE Stop: 01/20/25 11:58 Last Infusion: 01/20/25 12:22 Dose: Infused Documented By: Admin: 01/20/25 11:10 Dose: 999 mls/hr Documented By: TIMOTHY Azithromycin (Zithromax) 500 mg in 255 mls @ 127.5 mls/hr IV NOW ONE Stop: 01/20/25 13:57 Last Admin: 01/20/25 13:11 Dose: 127.5 mls/hr Documented By: TIMOTHY Piperacillin Sod/Tazobactam Sod (Zosyn) 4.5 gm in 100 mls @ 200 mls/hr IV NOW ONE; Protocol Stop: 01/20/25 12:33 Last Infusion: 01/20/25 13:10 Dose: Infused Documented By: Admin: 01/20/25 12:40 Dose: 200 mls/hr Documented By: TIMOTHY Imaging Data Radiologist's Impression: Chest X-Ray 01/20/25 10:58 SINGLE VIEW CHEST CLINICAL HISTORY: Lightheadedness. Change in mental status. FINDINGS: The examination is degraded by portable technique and apical lordotic positioning. An AP, portable, upright chest radiograph is compared to study dated chest x-ray dated 05/26/2018 and correlated with chest CT dated 05/27/2018. The heart is enlarged and noting atherosclerotic calcification of the thoracic aorta. The pulmonary vasculature is noncongested. There is airspace consolidation in the right mid to lower lung. Atelectasis is noted at the left lung base. No large pleural effusion or pneumothorax is identified. The skeletal structures are osteopenic. The bony thorax is grossly intact. IMPRESSION: 1. Cardiomegaly without radiographic evidence of congestive failure. 2. Airspace consolidation in the right mid to lower lung is typical for pneumonia. Clinical correlation will be required and radiographic follow-up to resolution is recommended. ACT 112: Negative or not required by law. Electronically signed by: Abebe Zuniga M.D. 01/20/2025 11:48 AM Discharge Plan Visit Data Chief Complaint: Dizziness ED Provider: Carlos Alvarez Discharge Problem: Sepsis, Community acquired pneumonia, Hypomagnesemia, Acute hyponatremia Patient Disposition: Admitted As Inpatient Condition: Fair Forms Stand Alone Forms: My [facility] Prescriptions Prescriptions: No Action latanoprost [Xalatan] 0.005 % Drops 1 drp OPHTHALMIC (EYE) UD Rx Instructions: original:1 drop eye pm 01/20-last filled 03/06/24 90 day supply fluticasone propion-salmeterol [Wixela Inhub] 250-50 mcg/dose Blister With Device 1 inh INHALATION BID sildenafil [Viagra] 100 mg Tablet 100 mg PO UD PRN (Reason: Erectile Dysfunction) Rx Instructions: 01/20- no fill history unable to verify ascorbic acid (vitamin C) [Vitamin C] 500 mg Tablet 500 mg PO QAM Rx Instructions: 01/20- otc unable to verify furosemide 20 mg Tablet 20 mg PO QPM PRN (Reason: Fluid Retention) Rx Instructions: 01/20- no fill history unable to verify epinephrine [EpiPen] 0.3 mg/0.3 mL Auto-Injector 0.3 mg IM Q3H PRN (Reason: Allergy Symptoms) Rx Instructions: 01/20- no fill history unable to verify omeprazole 20 mg Tablet,Delayed Release (Dr/Ec) 20 mg PO QAM mometasone 0.1 % Cream 1 applic TOPICAL UD PRN (Reason: Skin Cleansing) Rx Instructions: 01/20-last filled 07/20/24 23 day supply acetaminophen [Tylenol] 325 mg Tablet 650 mg PO QID PRN (Reason: Pain) Rx Instructions: 01/20- otc unable to verify atorvastatin 20 mg tablet 20 mg PO QPM aspirin 81 mg Tablet,Delayed Release (Dr/Ec) 81 mg PO QPM Rx Instructions: 01/20- otc unable to verify lisinopril 5 mg tablet 10 mg PO UD Rx Instructions: original:10 mg po daily 01/20-last filled 04/03/24 90 day Nucynta 50 mg tablet 50 mg PO BID amlodipine [Norvasc] 10 mg tablet 10 mg PO UD Rx Instructions: original:10 mg po daily 01/20- no fill history unable to verify gabapentin 300 mg Capsule 300 mg PO TID allopurinol 300 mg tablet 300 mg PO DAILY Referrals Referrals: Kain Russell MD [Primary Care Provider] -
[2025-01-20] MEDS: PLASMA-LYTE A 1,000 ML IV ONE (11:10)
[2025-01-20 11:19] LABS: Hematocrit (blood only) 34.5 % (42.0-52.0); Hemoglobin 11.6 g/dl (14.0-18.0); Immature Granulocytes # (auto) 0.10 K/uL (0.01-0.20); Immature Granulocytes % (auto) 0.6 %; Mean Corpuscular Hemoglobin 30.6 pg (25.0-34.0); Mean Corpuscular Volume 91.0 fL (80.0-100.0); Platelet Count 232 K/uL (130-400); RDW Standard Deviation 49.8 fL (36.4-46.3); Red Blood Count 3.79 M/uL (4.70-6.10); White Blood Count 17.13 K/ul (4.8-10.8)
--- NOTE | 2025-01-20 11:19 | Emergency Department Note ---
ED Provider Note NAME: AGE: [ ] SEX: [M/F] : [] ARRIVES VIA: [] INFORMANT: [] ED PROVIDER(S): Carlos Alvarez DO CHIEF COMPLAINT: [] HPI: This is a [] -year-old [ ]male with the PMHx of [ ] presenting to [facility] for further evaluation of []. Patient states []. They deny fever or chills. No cough or congestion. Denies chest pain or palpitations. No shortness of breath. They deny abdominal pain, nausea and vomiting. No urinary complaints. No recent changes in bowel movements. Patient denies recent changes in medications or OTC supplements. Patient offers no other complaints, today. ADDITIONAL HISTORY OBTAINED: Per HPI Chronic Medical/Social Conditions Affecting Care: Per HPI PAST MEDICAL HISTORY: See Below PAST SURGICAL HISTORY: See Below FAMILY HISTORY: See Below SOCIAL HISTORY: See Below HOME MEDICATIONS: See Below ALLERGIES: See Below VITALS: See Below PHYSICAL EXAMINATION: GENERAL: Sitting up in bed, alert, well appearing, well nourished, no distress, non-toxic EYE EXAM: normal conjunctiva. [PERRL and EOM's grossly intact.] OROPHARYNX: no exudate, no erythema, lips, buccal mucosa, and tongue normal and mucous membranes are moist NECK: supple, no nuchal rigidity, no adenopathy, non-tender [] LUNGS: Clear to auscultation. Normal chest wall mechanics HEART: no murmurs, [regular] rate, [regular] rhythm ABDOMEN: abdomen soft, non-tender, normo-active bowel sounds, no masses, no rebound or guarding. BACK: Back is symmetrical on inspection and there is no deformity, no midline tenderness, no CVA tenderness. SKIN: no rashes and no bruising UPPER EXTREMITIES: upper extremities are grossly normal. LOWER EXTREMITIES: No pitting edema. NEURO EXAM: Normal sensorium, cranial nerves II-XII [grossly] intact, normal speech, no [gross] weakness of arms, no [gross] weakness of legs. [No drift. Finger to nose intact. Gross sensation intact.] MEDICAL DECISION MAKING: Differential diagnosis includes but not limited to [ ] In summary, this is a [ ] -year-old presenting for [ ]. triage nursing notes reviewed. Patient is afebrile and hemodynamically stable [ ]. Diagnostics interpreted by me include EKG and cardiac monitoring as listed below: -Cardiac Monitoring: An order was placed for continuous cardiac monitoring. The monitor shows a rate of [] with [] rhythm. -ECG: [none] History provided by the patient includes [ ]. Physical examination reveals [ ]. Given history and presentation, we will [ ]. Labs and imaging reviewed. Pertinent findings include [ ]. Consults/Care Managements Discussions: Per MDM ER treatment provided: See above Procedures:[none] Critical Care: [None] Past Med/Surg History Problem List (Updated 10/02/23 @ 00:09 by Julia Kohli) Opiate overdose Postoperative fever CKD (chronic kidney disease) stage 3, GFR 30-59 ml/min Postoperative fever Discharge planning issues Leukocytosis Fever (Acute) Metabolic acidosis CANDIS (acute kidney injury) Encounter for pre-operative examination COPD (chronic obstructive pulmonary disease) Obesity (BMI 30-39.9) (Chronic) DJD (degenerative joint disease) (Chronic) HTN (hypertension) HLD (hyperlipidemia) Unilateral primary osteoarthritis, right knee Risks and benefits of procedure discussed in detail today, patient would like to proceed with Right TKA @ [facility] as scheduled. will obtain medical clearance with Dr Russell prior to surgery as well as obtain PATs at [facility]. Will place on ASA 81mg po bid x 1 month post op, f/u 2 weeks post op for routine post- operative care and xray, sooner if having any problems. will discuss with CM poss rehab placement vs residential facility. patient has failed conservative measures including prior NSAID use which is now held due to chronic kidney disease, prior visco injections and cortisone injections. Medical History History of COVID-19 08/2022 home test. fever, body aches, and chills. doing well at this time. History of basal cell carcinoma History of melanoma Obesity (BMI 30-39.9) Hearing deficit COCHLEAR IMPLANT ON RIGHT; HEARING AID ON LEFT Kidney disease STAGE III; BASELINE CREATININE 1.5 PER CHART REVIEW GERD (gastroesophageal reflux disease) CONTROLLED Osteoarthritis Glaucoma Sleep apnea CPAP (NON-COMPLIANT) COPD (chronic obstructive pulmonary disease) STABLE Unilateral primary osteoarthritis, right knee Risks and benefits of procedure discussed in detail today, patient would like to proceed with Right TKA @ [facility] as scheduled. will obtain medical clearance with Dr Russell prior to surgery as well as obtain PATs at [facility]. Will place on ASA 81mg po bid x 1 month post op, f/u 2 weeks post op for routine post- operative care and xray, sooner if having any problems. will discuss with CM poss rehab placement vs residential facility. patient has failed conservative measures including prior NSAID use which is now held due to chronic kidney disease, prior visco injections and cortisone injections. HLD (hyperlipidemia) HTN (hypertension) DJD (degenerative joint disease) Surgical History History of cataract surgery right History of oral surgery History of basal cell carcinoma (BCC) excision History of melanoma excision Status post right knee replacement Hx of colonoscopy History of carpal tunnel surgery of left wrist History of cochlear implant RIGHT History of arthroplasty of left knee Hx of cardiac cath 2012= NO STENTS Social History Smoking Status: Current every day smoker Tobacco Type: E-cigarettes / Vaping Cigarettes Per Day: QUIT CIGARETTES 4 YRS AGO, CURRENTLY USES E-CIGARETTES DAILY; Second Hand Exposure: No; Do You Dip or Chew Tobacco: No; Hx Alcohol Use: Yes (HX OF HEAVY ETOH USE) Alcohol type: hard liquor Hx Substance Use: No Preferred Language: Polish Communication Ability: Effective Communication Ability Comment: [facility] Electrical Tech/Project Manager Required: No Beliefs That Will Affect Care: None Current Living Situation: Alone Feels Safe at Home: Yes Assistive Devices: Hearing Aid - Left and Hearing Aid - Right Allergies Allergies Allergy/AdvReac Type Severity Reaction Status Date / Time bee venom protein (honey bee) Allergy Severe THROAT Verified 12/25/22 07:37 SWELLING ceftriaxone Allergy Intermediate HIVES Verified 12/25/22 07:37 Sulfa (Sulfonamide Allergy Unknown Unknown Verified 12/25/22 07:37 Antibiotics) Home Meds Home Medications Medication Instructions Recorded Confirmed ascorbic acid (vitamin C) 500 mg 500 mg PO QAM 04/29/18 12/25/22 tablet (Vitamin C) epinephrine 0.3 mg/0.3 mL 0.3 mg IM Q3H PRN Allergy Symptoms 04/29/18 12/25/22 injection, auto-injector (EpiPen) fluticasone 250 mcg-salmeterol 50 1 inh inhalation BID 04/29/18 12/25/22 mcg/dose blistr powdr for inhalation (Advair Diskus) furosemide 20 mg tablet 20 mg PO QPM PRN Fluid Retention 04/29/18 12/25/22 latanoprost 0.005 % eye drops 1 drp ophthalmic (eye) PM 04/29/18 12/25/22 (Xalatan) mometasone 0.1 % topical cream 1 applic topical UD PRN Skin 04/29/18 12/25/22 Cleansing omeprazole 20 mg tablet,delayed 20 mg PO QAM 04/29/18 12/25/22 release sildenafil 100 mg tablet (Viagra) 100 mg PO UD PRN Erectile 04/29/18 12/25/22 Dysfunction acetaminophen 325 mg tablet 650 mg PO QID PRN Pain 07/07/20 12/25/22 (Tylenol) aspirin 81 mg tablet,delayed 81 mg PO QPM 07/07/20 12/25/22 release atorvastatin 20 mg tablet 20 mg PO QPM 07/07/20 12/25/22 lisinopril 5 mg tablet 10 mg PO QDL 07/07/20 12/25/22 tapentadol 50 mg tablet (Nucynta) 50 mg PO BID 07/07/20 12/25/22 amlodipine 10 mg tablet (Norvasc) 10 mg PO QDL 11/15/22 12/25/22 gabapentin 300 mg capsule 600 mg PO HS 11/15/22 12/25/22 Results & Data (ED) Vital Signs Vital Signs - 24 hr 01/20/25 10:50 01/20/25 10:50 01/20/25 11:06 Temperature 37.4 C Temperature Source Oral Pulse Rate 114 H Pulse Rate [Apical] 110 H Respiratory Rate 22 22 Respiratory Effort / Characteristics Non-Labored Spontaneous Non-Labored Spontaneous Respiratory Depth Normal Normal Respiratory Pattern Regular Regular Blood Pressure 104/81 Blood Pressure [Right Arm] 99/58 L Blood Pressure Mean 88 Blood Pressure Mean [Right Arm] 71 Blood Pressure Position Semi-fowlers Blood Pressure Position [Right Arm] Semi-fowlers Pulse Oximetry 95 95 95 Oxygen Delivery Method Room Air Room Air Room Air Sepsis Recent Fever Within 48 Hours No Sepsis New/Unexplained Change in Mental Status No Sepsis Action Taken by Nursing Physician Notified 01/20/25 11:06 Temperature Temperature Source Pulse Rate 112 H Pulse Rate [Apical] Respiratory Rate 22 Respiratory Effort / Characteristics Respiratory Depth Respiratory Pattern Blood Pressure Blood Pressure [Right Arm] Blood Pressure Mean Blood Pressure Mean [Right Arm] Blood Pressure Position Blood Pressure Position [Right Arm] Pulse Oximetry 95 Oxygen Delivery Method Room Air Sepsis Recent Fever Within 48 Hours Sepsis New/Unexplained Change in Mental Status Sepsis Action Taken by Nursing Laboratory Data 01/20/25 11:05 01/20/25 11:05 Administered Medications Parenteral Electrolytes (Plasma-Lyte A Ph 7.4) 1,000 mls @ 999 mls/hr IV .Q1H1M ONE Stop: 01/20/25 11:58 Last Admin: 01/20/25 11:10 Dose: 999 mls/hr Documented By: TIMOTHY Discharge Plan Visit Data Chief Complaint: Dizziness ED Provider: Carlos Alvarez Forms Stand Alone Forms: [facility] Prescriptions Prescriptions: No Action latanoprost [Xalatan] 0.005 % Drops 1 drp OPHTHALMIC (EYE) PM fluticasone propion-salmeterol [Advair Diskus] 250-50 mcg/dose Blister With Device 1 inh INHALATION BID sildenafil [Viagra] 100 mg Tablet 100 mg PO UD PRN (Reason: Erectile Dysfunction) ascorbic acid (vitamin C) [Vitamin C] 500 mg Tablet 500 mg PO QAM furosemide 20 mg Tablet 20 mg PO QPM PRN (Reason: Fluid Retention) epinephrine [EpiPen] 0.3 mg/0.3 mL Auto-Injector 0.3 mg IM Q3H PRN (Reason: Allergy Symptoms) omeprazole 20 mg Tablet,Delayed Release (Dr/Ec) 20 mg PO QAM mometasone 0.1 % Cream 1 applic TOPICAL UD PRN (Reason: Skin Cleansing) acetaminophen [Tylenol] 325 mg Tablet 650 mg PO QID PRN (Reason: Pain) atorvastatin 20 mg tablet 20 mg PO QPM aspirin 81 mg Tablet,Delayed Release (Dr/Ec) 81 mg PO QPM lisinopril 5 mg tablet 10 mg PO QDL Nucynta 50 mg tablet 50 mg PO BID amlodipine [Norvasc] 10 mg tablet 10 mg PO QDL gabapentin 300 mg Capsule 600 mg PO HS Referrals Referrals: Kain Russell MD [Primary Care Provider] -
[2025-01-20 11:38] LABS: Alanine Aminotransferase 10.0 U/L (7-52); Albumin Globulin Ratio 1.4 (0.9-2); Alkaline Phosphatase 54.0 U/L (34-104); Anion Gap 6.0 (3-11); Bilirubin,Total 1.0 mg/dl (0.2-1.0); Blood Urea Nitrogen 16.0 mg/dl (6-23); Calcium 9.2 mg/dl (8.6-10.3); Carbon Dioxide 25.0 mmol/L (21-32); Chloride 101.0 mmol/L (98-107); Creatinine Clr Calc Pharmacy 58.0 ml/min; Globulin 2.6 gm/dl (2.5-4.0); Glucose 125.0 mg/dl (70-99(Fasting)); Magnesium 1.1 mg/dl (1.7-2.4); Potassium 4.4 mmol/L (3.5-5.1); Sodium 132.0 mmol/L (136-145); Total Protein 6.3 gm/dl (6.0-8.3)
--- NOTE | 2025-01-20 11:50 | XRay Report ---
SINGLE VIEW CHEST CLINICAL HISTORY: Lightheadedness. Change in mental status. FINDINGS: The examination is degraded by portable technique and apical lordotic positioning. An AP, p ortable, upright chest radiograph is compared to study dated chest x-ray dated 05/26/2018 and correlat ed with chest CT dated 05/27/2018. The heart is enlarged and noting atherosclerotic calcification of t he thoracic aorta. The pulmonary vasculature is noncongested. There is airspace consolidation in the right mid to lower lung. Atelectasis is noted at the left lung base. No large pleural effusion or pne umothorax is identified. The skeletal structures are osteopenic. The bony thorax is grossly intact. IMPRESSION: 1. Cardiomegaly without radiographic evidence of congestive failure. 2. Airspace consolidation in the right mid to lower lung is typical for pneumonia. Clinical correlati on will be required and radiographic follow-up to resolution is recommended. ACT 112: Negative or not required by law. Electronically signed by: Abebe Zuniga M.D. 01/20/2025 11:48 AM
[2025-01-20] MEDS: SODIUM CHLORIDE 0.9% 1,000 ML IV SCH ×3 (12:22→20:06)
[2025-01-20] MEDS: PIPERACILLIN/TAZOBACTAM 4.5 GM/100 ML BAG IV ONE (12:40)
[2025-01-20] MEDS: MAGNESIUM SULFATE / D5W 1 GM/100 ML BAG IV SCH ×2 (12:44→14:42)
[2025-01-20 12:48] LABS: Appearance Urine Clear (Clear); Glucose Urine UA Negative (Negative)
--- NOTE | 2025-01-20 12:52 | History & Physical Report ---
Date of Service January 20, 2025 Assessment & Plan (1) Acute metabolic encephalopathy: (2) Community acquired pneumonia: Plan: This is a 79yo M with a PMH of COPD, KINJAL with nocturnal hypoxemia, CAD, hypertension, BPH, CKD 3 and other medical problems listed below who presents from home with lightheadedness and was found to have acute metabolic encephalopathy in setting of CAP and hypomagnesemia. Mentation improving with abx, fluids No documented fever, tachycardic in 110s on arrival with WBC 17K and consolidation on R mid-lower lung consistent with PNA Meeting sepsis criteria but appears non-toxic, lactate normal UA, resp viral panel negative Received 1L NSS in ED, will continue for another 500ml Continue Zosyn, doxy for now - anticipate de-escalating to augmentin/doxy tomorrow Saturating on room air Incentive spirometry, Mucinex BID PRN Education on vape cessation (3) Hypomagnesemia: Plan: Initial Mg 1.1 Repleting, repeat Mag in AM (4) Generalized weakness: Plan: In setting of PNA, hypomagnesemia as above Added tick serology - pending Fall precautions Ambulates independently at baseline (5) CKD (chronic kidney disease) stage 3, GFR 30-59 ml/min: Plan: Cr at baseline mid-1s, monitor with daily BMP (6) COPD (chronic obstructive pulmonary disease): Plan: No wheezing on exam, does not use inhalers at home (7) HLD (hyperlipidemia): Plan: Continue statin (8) HTN (hypertension): Plan: No longer on antihypertensives at home, monitor (9) KINJAL on CPAP: Plan: CPAP HS DVT Ppx: SQ lovenox Code status: FULL PCP: Drew Dispo: Admitted to med/tele Patient seen in collaboration with Dr. Bassett. Please see addendum. I spent a total of 75 minutes coordinating, documenting, and providing care for this patient excluding time spent in the performance of separately billed services or time spent by another provider/QHP. History of Present Illness Chief Complaint: lightheadedness Primary Care Provider: Kain Russell MD This is a 79yo M with a PMH of COPD, KINJAL with nocturnal hypoxemia, CAD, hypertension, BPH, CKD 3 and other medical problems listed below who presents from home with lightheadedness. Attributed his symptoms to dehydration after being outside for his grandchildren sports and working outdoors over the past few days. Lives alone and noticed when he woke up this morning that he felt cold and teeth were chattering. Also felt confused about plans for the day, which is unusual for him. + Unsteady with ambulation and came close to falling, which prompted him to call EMS for further evaluation in the ED. Denies any recent known illness or sick contacts. No congestion, sore throat or cough. No CP/SOB, N/V, abd pain, dysuria, diarrhea or constipation. + Increased urination today. Vapes nicotine daily Allergies Allergy/AdvReac Type Severity Reaction Status Date / Time bee venom protein (honey bee) Allergy Severe THROAT Verified 12/25/22 07:37 SWELLING ceftriaxone Allergy Intermediate HIVES Verified 12/25/22 07:37 Sulfa (Sulfonamide Allergy Unknown Unknown Verified 12/25/22 07:37 Antibiotics) Home Medications Medication Instructions Recorded Confirmed Type ascorbic acid (vitamin C) 500 mg 500 mg PO QAM 04/29/18 01/20/25 History tablet (Vitamin C) epinephrine 0.3 mg/0.3 mL 0.3 mg IM Q3H PRN Allergy Symptoms 04/29/18 01/20/25 History injection, auto-injector (EpiPen) fluticasone 250 mcg-salmeterol 50 1 inh inhalation BID 04/29/18 01/20/25 History mcg/dose blistr powdr for inhalation (Wixela Inhub) furosemide 20 mg tablet 20 mg PO QPM PRN Fluid Retention 04/29/18 01/20/25 History latanoprost 0.005 % eye drops 1 drp ophthalmic (eye) UD 04/29/18 01/20/25 Histor y (Xalatan) mometasone 0.1 % topical cream 1 applic topical UD PRN Skin 04/29/18 01/20/25 History Cleansing omeprazole 20 mg tablet,delayed 20 mg PO QAM 04/29/18 01/20/25 History release sildenafil 100 mg tablet (Viagra) 100 mg PO UD PRN Erectile 04/29/18 01/20/25 History Dysfunction acetaminophen 325 mg tablet 650 mg PO BID PRN Pain 07/07/20 01/20/25 History (Tylenol) aspirin 81 mg tablet,delayed 81 mg PO QPM 07/07/20 01/20/25 History release atorvastatin 20 mg tablet 20 mg PO QPM 07/07/20 01/20/25 History tapentadol 50 mg tablet (Nucynta) 50 mg PO BID 07/07/20 01/20/25 History gabapentin 300 mg capsule 300 mg PO UD 11/15/22 01/20/25 History alendronate 70 mg tablet 70 mg PO SA@0900 01/20/25 01/20/25 History allopurinol 300 mg tablet 300 mg PO DAILY 01/20/25 01/20/25 History semaglutide (weight loss) 1 mg/0.5 1 mg subcut Q7D 01/20/25 01/20/25 History mL subcutaneous pen injector (Wegovy) Past Med/Surg History Problem List Generalized weakness KINJAL on CPAP Acute metabolic encephalopathy Hypomagnesemia (Acute) Community acquired pneumonia (Acute) Sepsis (Acute) Opiate overdose Postoperative fever CKD (chronic kidney disease) stage 3, GFR 30-59 ml/min Postoperative fever Discharge planning issues Leukocytosis Fever (Acute) Metabolic acidosis CANDIS (acute kidney injury) Encounter for pre-operative examination COPD (chronic obstructive pulmonary disease) Obesity (BMI 30-39.9) (Chronic) DJD (degenerative joint disease) (Chronic) HTN (hypertension) HLD (hyperlipidemia) Unilateral primary osteoarthritis, right knee Risks and benefits of procedure discussed in detail today, patient would like to proceed with Right TKA @ [facility] as scheduled. will obtain medical clearance with Dr Russell prior to surgery as well as obtain PATs at [facility]. Will place on ASA 81mg po bid x 1 month post op, f/u 2 weeks post op for routine post- operative care and xray, sooner if having any problems. will discuss with CM poss rehab placement vs detention facility. patient has failed conservative measures including prior NSAID use which is now held due to chronic kidney disease, prior visco injections and cortisone injections. Medical History History of COVID-19 08/2022 home test. fever, body aches, and chills. doing well at this time. History of basal cell carcinoma History of melanoma Hearing deficit COCHLEAR IMPLANT ON RIGHT; HEARING AID ON LEFT Kidney disease STAGE III; BASELINE CREATININE 1.5 PER CHART REVIEW GERD (gastroesophageal reflux disease) CONTROLLED Osteoarthritis Glaucoma Sleep apnea CPAP (NON-COMPLIANT) COPD (chronic obstructive pulmonary disease) STABLE Surgical History History of cataract surgery right History of oral surgery History of basal cell carcinoma (BCC) excision History of melanoma excision Hx of colonoscopy History of carpal tunnel surgery of left wrist History of cochlear implant RIGHT History of arthroplasty of left knee Hx of cardiac cath 2012= NO STENTS Family History Other Cancer Social History Smoking Status: Current every day smoker Tobacco Type: E-cigarettes / Vaping Cigarettes Per Day: QUIT CIGARETTES 4 YRS AGO, CURRENTLY USES E-CIGARETTES DAILY; Second Hand Exposure: No; Do You Dip or Chew Tobacco: No; Hx Alcohol Use: No Hx Substance Use: No Preferred Language: Icelandic Communication Ability: Effective Communication Ability Comment: [facility] Labor Relations Officer Required: No Beliefs That Will Affect Care: None Current Living Situation: Alone Feels Safe at Home: Yes Safety Concerns: Feels Safe At This Time Assistive Devices: CPAP Review of Systems Review of Systems: At least ten systems reviewed and negative except as noted in the HPI. Physical Exam Physical Exam: General Appearance: WD/WN, vitals as above, NAD, sitting up in bed, pleasant, conversing easily Head: normocephalic, atraumatic Eyes: normal inspection, PERRL, conjunctivae normal, anicteric sclerae ENT: hard of hearing, external ear and nose normal, oropharynx normal Neck: normal visual inspection Respiratory: normal respiratory effort, R mid-lower lung crackles, no wheezing Cardiovascular: regular rate, rhythm, normal peripheral pulses, trace BLE edema. Vessels: no JVD Chest: normal inspection of chest Abdomen/GI: normal bowel sounds, soft, nontender, no hepatosplenomegaly Extremities/Musculoskeletal: no cyanosis or clubbing, extremities motor strength 5/5 Neurologic: PERRL, EOMI, accommodation nl, no face palsy, no dysarthria, CN's II-XI intact bilaterally and moves all extremities Psychiatric: A+Ox3, euthymic affect Skin: no rashes, normal color, warm/dry Results & Data Results & Data Vital Signs (Past 12 Hours) Vital Signs Temp Pulse Pulse Resp BP BP Pulse Ox 01/20/25 12:15 98 H 22 109/68 94 01/20/25 12:12 99 H 18 109/68 95 01/20/25 12:01 90/51 L 01/20/25 11:48 99 H 23 01/20/25 11:45 103 H 20 01/20/25 11:41 110 H 01/20/25 11:15 106 H 33 H 91 01/20/25 11:14 107 H 125/75 01/20/25 11:06 112 H 22 95 01/20/25 11:06 110 H 22 99/58 L 95 01/20/25 10:50 95 01/20/25 10:50 37.4 C 114 H 22 104/81 95 O2 Del Method 01/20/25 12:15 Room Air 01/20/25 12:12 Room Air 01/20/25 12:01 01/20/25 11:48 01/20/25 11:45 01/20/25 11:41 01/20/25 11:15 01/20/25 11:14 01/20/25 11:06 Room Air 01/20/25 11:06 Room Air 01/20/25 10:50 Room Air 01/20/25 10:50 Room Air Laboratory Results Short CBC 01/20/25 Range/Units 11:05 WBC 17.13 H (4.8-10.8) K/ul Hgb 11.6 L (14.0-18.0) g/dl Hct 34.5 L (42.0-52.0) % Plt Count 232 (130-400) K/uL BMP 01/20/25 11:05 Sodium 132 L Potassium 4.4 Chloride 101 Carbon Dioxide 25 BUN 16 Creatinine 1.15 Glucose 125 H Calcium 9.2 Liver Function 01/20/25 Range/Units 11:05 Total Bilirubin 1.0 (0.2-1.0) mg/dl AST 12 L (13-39) U/L ALT 10 (7-52) U/L Alkaline Phosphatase 54 (34-104) U/L Albumin 3.7 (3.4-5.0) gm/dl Urine 01/20/25 Range/Units 11:53 Urine Color Yellow Urine Appearance Clear (Clear) Urine pH 7.0 (4.5-7.5) Ur Specific [place] 1.009 (1.000-1.030) Urine Protein Negative (Negative) Urine Glucose (UA) Negative (Negative) Diagnostic Findings Chest X-Ray 01/20/25 10:58 SINGLE VIEW CHEST CLINICAL HISTORY: Lightheadedness. Change in mental status. FINDINGS: The examination is degraded by portable technique and apical lordotic positioning. An AP, portable, upright chest radiograph is compared to study dated chest x-ray dated 05/26/2018 and correlated with chest CT dated 05/27/2018. The heart is enlarged and noting atherosclerotic calcification of the thoracic aorta. The pulmonary vasculature is noncongested. There is airspace consolidation in the right mid to lower lung. Atelectasis is noted at the left lung base. No large pleural effusion or pneumothorax is identified. The skeletal structures are osteopenic. The bony thorax is grossly intact. IMPRESSION: 1. Cardiomegaly without radiographic evidence of congestive failure. 2. Airspace consolidation in the right mid to lower lung is typical for pneumonia. Clinical correlation will be required and radiographic follow-up to resolution is recommended. ACT 112: Negative or not required by law. Electronically signed by: Abebe Zuniga M.D. 01/20/2025 11:48 AM Code Status & VTE Plan VTE Prophylaxis Plan VTE Prophylaxis will be ordered: Yes Supervising Physician Co-Signing Physician Notes Attending addendum: The patient was seen and examined in the emergency room He was brought in with acute confusion, weakness and also chills but no documented fever Denies any other significant symptoms On examination Sitting at the edge of the bed without any acute distress Remains hemodynamically stable with tachycardia of 102 and blood pressure on the lower side at 105/79 Chestright basilar crackles HeartS1, S2 regular Abdomenbenign Extremitiestrace edema CNSalert, awake and oriented x 3, moves all extremities. Still feels little bit foggy His admission labs and imaging studies reviewed Has CAP involving the right lower lobe with hypomagnesemia Started on intravenous Zosyn and doxycycline and will check for Lyme titer Other significant medical conditions remained stable as mentioned above Acute assessment and plan as outlined above by Nelda Bellamy PA-C and take the full responsibility of care in the hospital Dr Erwin Bassett
[2025-01-20] MEDS: AZITHROMYCIN 500 MG/255 ML BAG IV ONE (13:11)
[2025-01-20] MEDS ORDERED: guaiFENesin 600 MG TABCR PO PRN (13:43)
[2025-01-20 13:57] LABS: Chlamydia pneumoniae PCR Not Detected (NotDetected); Coronavirus 229E PCR Not Detected (NotDetected); Coronavirus CoV-2 (COVID19)PCR Not Detected (NotDetected); Coronavirus HKU1 PCR Not Detected (NotDetected); Coronavirus NL63 PCR Not Detected (NotDetected); Coronavirus OC43PCR Not Detected (NotDetected); Human Metapneumovirus PCR Not Detected (NotDetected); Parainfluenza Virus 1 PCR Not Detected (NotDetected); Parainfluenza Virus 2 PCR Not Detected (NotDetected); Parainfluenza Virus 3 PCR Not Detected (NotDetected); Parainfluenza Virus 4 PCR Not Detected (NotDetected); Respiratory Syncytial VirusPCR Not Detected (NotDetected); Rhinovirus/Enterovirus PCR Not Detected (NotDetected)
[2025-01-20] MEDS ORDERED: ACETAMINOPHEN 325 MG TAB PO PRN (14:28)
[2025-01-20] MEDS ORDERED: ONDANSETRON INJ 2 MG/ML 2 ML VIAL IV PRN (14:28)
[2025-01-20] MEDS ORDERED: POLYETHYLENE (MIRALAX) 17 GM PACK PO PRN (14:28)
[2025-01-20] MEDS: ENOXAPARIN INJ 40 MG/0.4 ML SYR SQ SCH (14:43)
[2025-01-20] MEDS: SODIUM CHLORIDE 0.9% 500 ML IV SCH (14:50)
--- NOTE | 2025-01-20 15:08 | Electrocardiogram Report ---
Test Reason : Blood Pressure : */* mmHG Vent. Rate : 112 BPM Atrial Rate : 112 BPM P-R Int : 148 ms QRS Dur : 88 ms QT Int : 316 ms P-R-T Axes : 47 -21 8 degrees QTcB Int : 431 ms Sinus tachycardia Otherwise normal ECG When compared with ECG of 27-May-2018 07:32, No significant change was found Confirmed by Americo Pickens ([id number]) on 01/20/2025 3:07:56 PM Referred By: Confirmed By: Americo Pickens
[2025-01-20] MEDS: TAPENTADOL HCL 50 MG TAB PO ONE (16:31)
[2025-01-20] MEDS: NICOTINE POLACRILEX 2 MG GUM MT PRN (16:32)
[2025-01-20] MEDS: ACETAMINOPHEN 500 MG TAB PO STA (16:48)
[2025-01-20] MEDS ORDERED: AMOXICILLIN/CLAVULANATE 875 MG TAB PO SCH (17:00)
[2025-01-20] MEDS: PIPERACILLIN/TAZOBACTAM 4.5 GM/100 ML BAG IV SCH (18:03)
[2025-01-20] MEDS ORDERED: ACETAMINOPHEN 500 MG TAB PO PRN (19:58)
[2025-01-20] MEDS: LATANOPROST 0.005% OP SOLN 2.5 ML BTL OP SCH (20:09)
[2025-01-20] MEDS: GABAPENTIN 300 MG CAP PO SCH (20:10)
[2025-01-20] MEDS: DOXYCYCLINE HYCLATE 100 MG CAP PO SCH (20:10)
[2025-01-20] MEDS: ASPIRIN 81 MG ECTAB PO SCH (20:12)
[2025-01-20] MEDS: ATORVASTATIN 20 MG TAB PO SCH (20:16)
[2025-01-20] MEDS: TAPENTADOL HCL 50 MG TAB PO SCH (22:01)
[2025-01-21 06:29] LABS: Hematocrit (blood only) 30.5 % (42.0-52.0); Hemoglobin 10.3 g/dl (14.0-18.0); Mean Corpuscular Hemoglobin 30.6 pg (25.0-34.0); Mean Corpuscular Volume 90.5 fL (80.0-100.0); Platelet Count 234 K/uL (130-400); RDW Standard Deviation 48.6 fL (36.4-46.3); Red Blood Count 3.37 M/uL (4.70-6.10); White Blood Count 11.33 K/ul (4.8-10.8)
[2025-01-21 06:52] LABS: Anion Gap 7.0 (3-11); Blood Urea Nitrogen 14.0 mg/dl (6-23); Calcium 8.2 mg/dl (8.6-10.3); Carbon Dioxide 22.0 mmol/L (21-32); Chloride 106.0 mmol/L (98-107); Creatinine Clr Calc Pharmacy 60.2 ml/min; Glucose 107.0 mg/dl (70-99(Fasting)); Magnesium 1.9 mg/dl (1.7-2.4); Potassium 4.2 mmol/L (3.5-5.1); Sodium 135.0 mmol/L (136-145)
[2025-01-21] MEDS: ASCORBIC ACID 500 MG TAB PO SCH (07:37)
[2025-01-21] MEDS: GABAPENTIN 300 MG CAP PO SCH (07:38)
[2025-01-21] MEDS: FLUTICASONE/VILANTEROL 200/25MCG 14 PUFFS/INHALER INH SCH (07:40)
[2025-01-21 11:19] VITALS: BP 132/81; PULSE 77; RESP 20; TEMP 97.9; O2SAT 92
--- NOTE | 2025-01-21 14:07 | Discharge Summary ---
Discharge Summary Date of Service January 21, 2025 Principal Dx & Hospital Course #1 = Principal Diagnosis (1) Acute metabolic encephalopathy: (2) Community acquired pneumonia: This is a 79yo M with a PMH of COPD, KINJAL with nocturnal hypoxemia, CAD, hypertension, BPH, CKD 3 and other medical problems listed below who presents from home with lightheadedness and was found to have acute metabolic encephalopathy in setting of CAP and hypomagnesemia. Mentation improving with abx, fluids No documented fever, tachycardic in 110s on arrival with WBC 17K and consolidation on R mid-lower lung consistent with PNA Meeting sepsis criteria but appears non-toxic, lactate normal UA, resp viral panel negative Received 1L NSS in ED, will continue for another 500ml Continue Zosyn, doxy for now - anticipate de-escalating to augmentin/doxy tomorrow Saturating on room air Incentive spirometry, Mucinex BID PRN Education on vape cessation (3) Hypomagnesemia: Initial Mg 1.1 Repleting, repeat Mag in AM (4) Generalized weakness: In setting of PNA, hypomagnesemia as above Added tick serology - pending Fall precautions Ambulates independently at baseline (5) CKD (chronic kidney disease) stage 3, GFR 30-59 ml/min: Cr at baseline mid-1s, monitor with daily BMP (6) COPD (chronic obstructive pulmonary disease): No wheezing on exam, does not use inhalers at home (7) HLD (hyperlipidemia): Continue statin (8) HTN (hypertension): No longer on antihypertensives at home, monitor (9) KINJAL on CPAP: CPAP HS Notes For Next Care Provider This is a 79yo M with a PMH of COPD, KINJAL with nocturnal hypoxemia, CAD, hyperten hussain, BPH, CKD 3 and other medical problems listed below who presents from home with lightheadedness. Found to be dehydrated with CAP, admitted to medicine. On medicine, given fluids and abx. Saturating well on room air, feels back to baseline. On 01/21/2025 patient medically stable for discharge home. To do: [ ] f/u xray in 1-3 months for CAP resolution Medication Changes From Visit -see below Admission HPI Per Admitting Provider This is a 79yo M with a PMH of COPD, KINJAL with nocturnal hypoxemia, CAD, hypertension, BPH, CKD 3 and other medical problems listed below who presents from home with lightheadedness. Attributed his symptoms to dehydration after being outside for his grandchildren sports and working outdoors over the past few days. Lives alone and noticed when he woke up this morning that he felt cold and teeth were chattering. Also felt confused about plans for the day, which is unusual for him. + Unsteady with ambulation and came close to falling, which prompted him to call EMS for further evaluation in the ED. Denies any recent known illness or sick contacts. No congestion, sore throat or cough. No CP/SOB, N/V, abd pain, dysuria, diarrhea or constipation. + Increased urination today. Vapes nicotine daily Discharge Exam Gen: A&O 3 NAD HEENT: NCAT, EOMI, not icteric. External ears normal. No rhinorrhea. Moist mucous membranes. Neck: Supple, full range of motion, no observable masses, No meningeal sign. Lungs: No Respiratory distress. CV: RRR, no edema. Abdomen: Soft, nondistended, No rebound tenderness. MSK: No joint swelling, no redness. Skin: No rashes, petechiae, lesions. Normal color per patient. Neuro: Normal Gait, Grossly intact. Psych: Appropriate for situation. Updated Medication List Medication Instructions Recorded Confirmed Type epinephrine 0.3 mg/0.3 mL 0.3 mg IM Q3H PRN Allergy Symptoms 04/29/18 01/20/25 History injection, auto-injector (EpiPen) fluticasone 250 mcg-salmeterol 50 1 inh inhalation BID 04/29/18 01/20/25 History mcg/dose blistr powdr for inhalation (Wixela Inhub) furosemide 20 mg tablet 20 mg PO QPM PRN Fluid Retention 04/29/18 01/20/25 History latanoprost 0.005 % eye drops 1 drp ophthalmic (eye) UD 04/29/18 01/20/25 History (Xalatan) mometasone 0.1 % topical cream 1 applic topical UD PRN Skin 04/29/18 01/20/25 History Cleansing omeprazole 20 mg tablet,delayed 20 mg PO QAM 04/29/18 01/20/25 History release sildenafil 100 mg tablet (Viagra) 100 mg PO UD PRN Erectile 04/29/18 01/20/25 History Dysfunction acetaminophen 325 mg tablet 650 mg PO BID PRN Pain 07/07/20 01/20/25 History (Tylenol) aspirin 81 mg tablet,delayed 81 mg PO QPM 07/07/20 01/20/25 History release atorvastatin 20 mg tablet 20 mg PO QPM 07/07/20 01/20/25 History tapentadol 50 mg tablet (Nucynta) 50 mg PO BID 07/07/20 01/20/25 History gabapentin 300 mg capsule 300 mg PO UD 11/15/22 01/20/25 History alendronate 70 mg tablet 70 mg PO SA@0900 01/20/25 01/20/25 History allopurinol 300 mg tablet 300 mg PO DAILY 01/20/25 01/20/25 History semaglutide (weight loss) 1 mg/0.5 1 mg subcut Q7D 01/20/25 01/20/25 History mL subcutaneous pen injector (Wegovy) amoxicillin 500 mg-potassium 1 tab PO BID 5 days #10 tabs 01/21/25 Rx clavulanate 125 mg tablet (Augmentin) doxycycline hyclate 100 mg capsule 100 mg PO BID 5 days #10 caps 01/21/25 Rx guaifenesin 600 mg tablet, 600 mg PO Q12 PRN congestion #14 01/21/25 Rx extended release 12 hr (Mucinex) tabs Hospital Stay Data Consultations 01/20/25 12:26 ED Decision to Admit Stat Pending Results Patient Have Any Pending Studies at Discharge: No Discharge Instructions Given to Patient (Per Discharging Provider) 1. Please finish course of antibiotics and take all medications as prescribed. 2. Follow up with PCP. 3. Stay hydrated and stay out of the heat! Total Time Total Time Spent Total Time Spent (In Minutes): I spent a total of 35 minutes in direct patient care, including [id number] time with the patient and/or family, reviewing medical records, ordering and reviewing diagnostic tests, and coordinating care with other healthcare providers. This time includes: history taking, physical examination, medical decision making, counseling, ECG interpretation, imaging interpretation, lab interpretation, orders, and education, excluding time spent in the performance of separately billed services.
[2025-01-23] MEDS ORDERED: ALENDRONATE SODIUM 70 MG TAB PO SCH (09:00)
== END 2025-01-21 12:16 | disposition home or self-care (01) ==
LOC: 2N 10:44 → ED 10:44 → 2N 14:13 → SUATTDRO 14:21